=== PATIENT | male | born 1990 ===

== ENCOUNTER 2017-03-12 06:55 | Emergency (ER) | payer MEDICAID, OTHER ==
[2017-03-12 07:06] VITALS: BMI 22.6
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
[2017-03-12 07:56] LABS: BASO # 0.03 K/mm3 (0.0-2.0); BASO % 0.5 % (0.0-3.0); EOS # 0.1 (0.0-0.7); EOS % 1.2 % (1.5-5.0); GRAN # 2.78 (1.4-6.5); GRAN % 41.9 % (50.0-68.0); HEMOGLOBIN 14.7 gm/dL (14.0-18.0); INR 1.05 (0.93-1.08); LYMPH # 2.9 (1.2-3.4); LYMPH % 44.1 % (22.0-35.0); MEAN CELL VOLUME 99.3 fL (80.0-105.0); MEAN CORPUSCULAR HEMOGLOBIN 33.6 pg (25.0-35.0); MEAN CORPUSCULAR HGB CONC 33.8 g/dl (31.0-37.0); MONO # 0.8 (0.1-0.6); MONO % 12.3 % (1.0-6.0); PARTIAL THROMBOPLASTIN TIME 25.8 Seconds (23.7-30.8); PLATELET COUNT 245 10^3/uL (120.0-450.0); PROTHROMBIN TIME 11.3 Seconds (9.9-11.8); RBC 4.38 10^6/uL (3.5-6.1); RED CELL DISTRIBUTION WIDTH 12.6 % (11.5-14.5); WHITE BLOOD COUNT 6.6 10^3/ul (4.5-11.0)
[2017-03-12 08:40] LABS: ALB/GLOB RATIO 1.5 (1.1-1.8); ALBUMIN 4.3 g/dL (3.0-4.8); ALT/SGPT 18 U/L (7-56); AST/SGOT 25 U/L (15-59); BLOOD UREA NITROGEN 11 mg/dL (7-21); CALCIUM 9.1 mg/dL (8.4-10.5); GFR AFRICAN-AMERICAN > 60; GFR NON-AFRICAN AMERICAN > 60
--- NOTE | 2017-03-12 08:56 | CT ---
PROCEDURE: CT HEAD WITHOUT CONTRAST. HISTORY: fall COMPARISON: None available. TECHNIQUE: Axial computed tomography images were obtained through the head/brain without intravenous contrast. Radiation dose: Total exam DLP = 774 mGy-cm. This CT exam was performed using one or more of the following dose reduction techniques: Automated exposure control, adjustment of the mA and/or kV according to patient size, and/or use of iterative reconstruction technique. FINDINGS: HEMORRHAGE: No intracranial hemorrhage. BRAIN: No mass effect or edema. There is mild atrophy for this age group. VENTRICLES: Unremarkable. No hydrocephalus. CALVARIUM: Unremarkable. PARANASAL SINUSES: Unremarkable as visualized. No significant inflammatory changes. MASTOID AIR CELLS: Unremarkable as visualized. No inflammatory changes. OTHER FINDINGS: None. IMPRESSION: No acute findings
[2017-03-12] MEDS ORDERED: Fosphenytoin 1,000 MG in Sodium Chloride 0.9% 50 ML IV STA (09:03)
[2017-03-12] MEDS ORDERED: Ketamine 10 mg/ml Inj (20 ml) IV ONE (09:28)
--- NOTE | 2017-03-12 09:37 | RAD ---
PROCEDURE: Radiographs of the Left Shoulder HISTORY: fell on shoulder during seizure. COMPARISON: No prior. FINDINGS: BONES: Normal. No fracture. JOINTS: There is an anterior inferior dislocation of the left humeral head. SOFT TISSUES: Normal. OTHER FINDINGS: None. IMPRESSION: There is an anterior inferior dislocation of the left humeral head.
[2017-03-12 10:20] VITALS: RESP 18
[2017-03-12] MEDS ORDERED: Propofol 10 mg/ml Inj (20 ML) IVP ONE ×2 (10:36→12:09)
--- NOTE | 2017-03-12 11:21 | RAD ---
PROCEDURE: Radiographs of the Left Shoulder HISTORY: r/o shoulder dislocation COMPARISON: Earlier same day FINDINGS: BONES: Normal. No fracture. JOINTS: There is no change in the appearance of anterior inferior dislocation postreduction. SOFT TISSUES: Normal. OTHER FINDINGS: None. IMPRESSION: There is no change in the appearance of anterior inferior dislocation postreduction.
--- NOTE | 2017-03-12 12:12 | RAD ---
PROCEDURE: Left shoulder single-view HISTORY: r/o shoulder dislocation COMPARISON: Earlier same day TECHNIQUE: FINDINGS: There is no change in the dislocated right shoulder. There is anterior inferior dislocation. There is some flattening of the posterior surface of the humeral head consistent with chronic dislocations IMPRESSION: No change in dislocation
[2017-03-12 13:07] VITALS: O2SAT 100
--- NOTE | 2017-03-12 14:02 | RAD ---
PROCEDURE: Left shoulder HISTORY: post-reduction COMPARISON: Several previous study same day TECHNIQUE: Two views FINDINGS: The shoulder now shows normal alignment postreduction IMPRESSION: Successful reduction
[2017-03-12 15:34] VITALS: BP 127/70; PULSE 74; TEMP 98.5
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
--- NOTE | 2017-03-13 09:49 | CARD ---
APPROVED REPORT EKG Measurement Heart [id number] <Conclusion> Sinus tachycardia Incomplete right bundle branch block Left ventricular hypertrophy by voltage Prolonged QTc
== END 2017-03-12 15:34 | disposition home or self-care (01) ==
LOC: ED 06:55
DX: S43.005A Unspecified dislocation of left shoulder joint, initial encounter (principal); X58.XXXA Exposure to other specified factors, initial encounter; Y93.55 Activity, bike riding
CPT/HCPCS: 23650; 70450; 73020; 73030; 80053; 85025; 85610; 85730; 93005; 96365; 96375; 99285; J1885; J2704; Q2009

== ENCOUNTER 2017-05-25 22:55 | Emergency (ER) | payer MEDICAID, OTHER ==
[2017-05-25 22:56] VITALS: BMI 22.6
[2017-05-25] MEDS ORDERED: Morphine 4 mg/ml ISec IVP STA (23:40)
--- NOTE | 2017-05-25 23:43 | ED PDOC ---
Arrival/HPI - General Chief Complaint: Seizure Time Seen by Provider: 05/25/17 23:19 Historian: Patient - History of Present Illness Narrative History of Present Illness (Text): 05/25/17 23:19 Ochoa Marion is a 26 year old male, whose past medical history includes seizure disorder, who presents to the emergency department complaining of seizure episode prior to arrival. Patient's witnessed seizure and states that patient was sitting on the couch, did not experience any head trauma. Patient states that he normally dislocated shoulder after seizure and is now complaining of left shoulder pain. Patient has no other pain and denies any other complaints at this time. Reports that he does not always take his depakote. He report hx of 5 other shoulder dislocations and has not followed up with ortho Time/Duration: Prior to Arrival Symptom Onset: Sudden Symptom Course: Resolved Activities at Onset: Light Context: Home Past Medical History - Provider Review Nursing Documentation Reviewed: Yes - Infectious Disease Hx of Infectious Diseases: None - Tetanus Immunization Tetanus Immunization: Up to Date - Cardiac Hx Cardiac Disorders: No - Pulmonary Hx Respiratory Disorders: Yes Hx Tuberculosis: Yes (last year) - Neurological Hx Neurological Disorder: Yes Hx Seizures: Yes - HEENT Hx HEENT Disorder: No - Renal Hx Renal Disorder: No - Endocrine/Metabolic Hx Endocrine Disorders: No - Hematological/Oncological Hx Blood Disorders: No - Integumentary Hx Dermatological Disorder: No - Musculoskeletal/Rheumatological Hx Musculoskeletal Disorders: No - Gastrointestinal Hx Gastrointestinal Disorders: No - Genitourinary/Gynecological Hx Genitourinary Disorders: No - Psychiatric Hx Psychophysiologic Disorder: No Hx Substance Use: No - Anesthesia Hx Anesthesia: No Hx Anesthesia Reactions: No Family/Social History - Physician Review Nursing Documentation Reviewed: Yes Family/Social History: No Known Family HX Smoking Status: Never Smoked Hx Alcohol Use: No Hx Substance Use: No Allergies/Home Meds Allergies/Adverse Reactions: Allergies No Known Allergies Allergy (Verified 05/25/17 23:22) Home Medications: Home Meds Medication Instructions Recorded Confirmed Valproic Acid [Depakene] 500 mg PO BID 08/09/16 05/25/17 Review of Systems - Physician Review All systems were reviewed & negative as marked: Yes - Review of Systems Constitutional: absent: Fevers, Night Sweats Eyes: absent: Vision Changes ENT: absent: Hearing Changes Respiratory: absent: SOB, Cough Cardiovascular: absent: Chest Pain Gastrointestinal: absent: Abdominal Pain Genitourinary Male: absent: Dysuria, Frequency Musculoskeletal: absent: Arthralgias, Back Pain Skin: absent: Rash, Pruritis Neurological: Seizure. absent: Headache, Dizziness Hemo/Lymphatic: absent: Adenopathy Psychiatric: absent: Anxiety, Depression Physical Exam Vital Signs Reviewed: Yes Vital Signs Pulse Resp BP Pulse Ox 05/25/17 23:22 106 H 19 161/86 H 99 Blood Pressure: Hypertensive Pulse: Tachycardic Respiratory Rate: Normal Appearance: Positive for: Well-Appearing, Non-Toxic, Comfortable Pain Distress: Moderate (Left shoulder pain) Mental Status: Positive for: Alert and Oriented X 3 - Systems Exam Head: Present: Atraumatic, Normocephalic Pupils: Present: PERRL Extroacular Muscles: Present: EOMI Conjunctiva: Present: Normal Mouth: Present: Moist Mucous Membranes Neck: Present: Normal Range of Motion Respiratory/Chest: Present: Clear to Auscultation, Good Air Exchange. No: Respiratory Distress, Accessory Muscle Use Cardiovascular: Present: Regular Rate and Rhythm, Normal S1, S2. No: Murmurs Abdomen: Present: Normal Bowel Sounds. No: Tenderness, Distention, Peritoneal Signs Upper Extremity: Present: Deformity (Left shoulder interior dislocation), Other (Distal pulses intact). No: Normal ROM (unable to range left shoulder) Lower Extremity: Present: Normal Inspection. No: Edema Neurological: Present: GCS=15, CN II-XII Intact, Speech Normal Skin: Present: Warm, Dry, Normal Color. No: Rashes Medical Decision Making ED Course and Treatment: 05/25/17 23:45 Impression: 26 year old male complaining of left shoulder pain after a seizure that occurred prior to arrival. Non-compliant with medication. Differential Diagnosis included but are not limited to: Seizure Plan: -- Left Shoulder x-ray -- Morphine -- Reassess and disposition Prior Visits: Notes and results from previous visits were reviewed. Patient last seen in the ED on 03/12/17 after having a seizure that morning. Patient was discharged home. Progress Notes: 05/25/17 23:46 Patient notes that he was in normal state of health before seizure. Patient is following up with neurologist next month. 05/26/17 01:42 Reviewed radiology, left shoulder x-ray consistent with interior left shoulder dislocation. 05/26/17 03:57 Procedural sedation with propofol was performed. L shoulder reduced. Normal ROM of L shoulder and able to touch R shoulder with L hand. Neurovascularly intact 05/26/17 05:21 XRay Left Shoulder: Dictated and Authenticated by: Jenny Vizcaino MD FINDINGS: Study performed at 1AM earlier the same day demonstrated anterior inferior dislocation of the humeral head. The patient has subsequently undergone reduction. The humeral head is now positioned in normal alignment with the glenoid. Again seen is chronic flattening of the posterior surface of the humeral head consistent with chronic dislocations. IMPRESSION: Status post successful reduction. 05/26/17 05:23 Patient is now AAox3. L shoulder placed in sling. Will dc to follow-up with ortho. Instructed on the importance of compliance with seizure medication. Seizure medication refilled - RAD Interpretation Radiology Orders: 05/25/17 23:40 SHOULDER LEFT [RAD] Stat 05/26/17 03:47 SHOULDER LEFT ONE VIEW (OR) [RAD] Stat - Medication Orders Current Medication Orders: Discontinued Medications Morphine Sulfate (Morphine) 4 mg IVP STAT STA Stop: 05/25/17 23:41 Last Admin: 05/25/17 23:59 Dose: 4 mg MAR Pain Assessment Document 05/25/17 23:59 JOL (Rec: 05/25/17 23:59 JOL [id number]) Pain Reassessment Is this a pain reassessment? No Sleep Is patient sleeping during reassessment? No Presence of Pain Presence of Pain Yes Pain Scale Used Pain Scale Used Numeric Location Left, Right or Bilateral Left Pain Location Body Site Shoulder Description Intensity of Pain at present 9 Pain Behavior Withdrawal from Touch Grasping Site Rubbing Site Restlessness Facial Grimacing IVP Administration Document 05/25/17 23:59 JOL (Rec: 05/25/17 23:59 JOL [id number]) Charges for Administration # of IVP Administrations 1 Propofol (Diprivan) 120 mg IVP ONCE ONE Stop: 05/26/17 03:05 Last Admin: 05/26/17 02:00 Dose: 120 mg IVP Administration Document 05/26/17 02:00 JOL (Rec: 05/26/17 05:18 JOL [id number]) Charges for Administration # of IVP Administrations 1 Propofol (Diprivan) 120 mg IVP ONCE ONE Stop: 05/26/17 03:06 Last Admin: 05/26/17 03:07 Dose: 120 mg IVP Administration Document 05/26/17 03:07 JOL (Rec: 05/26/17 05:20 JOL [id number]) Charges for Administration # of IVP Administrations 1 Propofol (Diprivan) 100 mg IVP STAT STA Stop: 05/26/17 03:49 Last Admin: 05/26/17 04:07 Dose: 100 mg IVP Administration Document 05/26/17 04:07 JOL (Rec: 05/26/17 05:20 JOL [id number]) Charges for Administration # of IVP Administrations 1 ED Procedural Sedation - Pre Anesthesia Assessment Chief Complaint: Seizure Past Medical History: Medications Reviewed, Allergies Reviewed, Record Review Previous Surgies: Reviewed Family History/Social History: Reviewed - Physical Exam/Review of Systems Vital Signs Reviewed: Yes Cardiovascular: Regular Rate and Rhythm, Normal S1, S2. denies: Murmurs Respiratory/Chest: Clear to Auscultation, Good Air Exchange. denies: Respiratory Distress Neurological: GCS=15, CN II-XII Intact Abdomen: denies: Tenderness, Distention Mental Status: Alert and Oriented X 3 - Pre-Procedure Airway Assessment History of difficult intubation or surgical airway (i.e trach):: No Inability to extend neck:: No Mouth opening less than two finger breadth:: No Diagnosis of sleep apnea:: No Less than three finger breadth to hyoid bone:: No ASA Criteria: 1 - Healthy, normal. 2 - Mild systemic disease (No functional limitations, mildline obesity, DM withot complications, Hypertention). 3 - Severe systemic disease (Some functional limitation, stable angina, morbid obesity, controlled COPD/Asthma/CHF). 4 - Sever systemic disease constant threat to life (Unstable angina, active symptoms of COPD/Asthma, CHF/ Hypertension. 5 - Moribund Nursing ED Procedural Sedation: ER Moderate Sedation Start: 05/26/17 02: 54 Freq: Status: Active Created 05/26/17 02:54 JOL (Rec: 05/26/17 02:54 JOL [id number]) - Intra-Procedure (Medications) Medications Given: Discontinued Medications Morphine Sulfate (Morphine) 4 mg IVP STAT STA Stop: 05/25/17 23:41 Last Admin: 05/25/17 23:59 Dose: 4 mg MAR Pain Assessment Document 05/25/17 23:59 JOL (Rec: 05/25/17 23:59 JOL [id number]) Pain Reassessment Is this a pain reassessment? No Sleep Is patient sleeping during reassessment? No Presence of Pain Presence of Pain Yes Pain Scale Used Pain Scale Used Numeric Location Left, Right or Bilateral Left Pain Location Body Site Shoulder Description Intensity of Pain at present 9 Pain Behavior Withdrawal from Touch Grasping Site Rubbing Site Restlessness Facial Grimacing IVP Administration Document 05/25/17 23:59 JOL (Rec: 05/25/17 23:59 JOL [id number]) Charges for Administration # of IVP Administrations 1 Propofol (Diprivan) 120 mg IVP ONCE ONE Stop: 05/26/17 03:05 Last Admin: 05/26/17 02:00 Dose: 120 mg IVP Administration Document 05/26/17 02:00 JOL (Rec: 05/26/17 05:18 JOL [id number]) Charges for Administration # of IVP Administrations 1 Propofol (Diprivan) 120 mg IVP ONCE ONE Stop: 05/26/17 03:06 Last Admin: 05/26/17 03:07 Dose: 120 mg IVP Administration Document 05/26/17 03:07 JOL (Rec: 05/26/17 05:20 JOL [id number]) Charges for Administration # of IVP Administrations 1 Propofol (Diprivan) 100 mg IVP STAT STA Stop: 05/26/17 03:49 Last Admin: 05/26/17 04:07 Dose: 100 mg IVP Administration Document 05/26/17 04:07 JOL (Rec: 05/26/17 05:20 JOL [id number]) Charges for Administration # of IVP Administrations 1 - Scribe Statement The provider has reviewed the documentation as recorded by the Siddharth Cordova Provider Scribe Attestation: All medical record entries made by the Scribe were at my direction and personally dictated by me. I have reviewed the chart and agree that the record accurately reflects my personal performance of the history, physical exam, medical decision making, and the department course for this patient. I have also personally directed, reviewed, and agree with the discharge instructions and disposition. Disposition/Present on Arrival - Present on Arrival Any Indicators Present on Arrival: No History of DVT/PE: No History of Uncontrolled Diabetes: No Urinary Catheter: No History of Decub. Ulcer: No History Surgical Site Infection Following: None - Disposition Have Diagnosis and Disposition been Completed?: Yes Diagnosis: Seizure disorder, Shoulder dislocation Disposition: HOME/ ROUTINE Disposition Time: 05:23 Patient Plan: Discharge Patient Problems: Current Active Problems Problem Status Onset Seizure disorder Acute Shoulder dislocation Acute Condition: GOOD Discharge Instructions (ExitCare): Shoulder Dislocation (ED) Additional Instructions: Follow-up with orthopedics. Return to ED if condition worsens. Take depakote as prescribed. Follow-up with PMD within 2 days Prescriptions: Valproic Acid [Depakene] 250 mg PO BID #60 capsule Referrals: Rachel Ellis MD [Primary Care Provider] - Follow up with primary Diamante Bernard MD [Staff Provider] - Follow up with primary Forms: [employer] (Pashto)
[2017-05-26] MEDS ORDERED: Propofol 10 mg/ml Inj (20 ML) ONE (01:39)
[2017-05-26] MEDS ORDERED: Propofol 10 mg/ml Inj (20 ML) IVP ONE ×2 (03:04→03:05)
[2017-05-26] MEDS ORDERED: Propofol 10 mg/ml Inj (20 ML) IVP STA (03:48)
--- NOTE | 2017-05-26 05:20 | RAD ---
EXAM: XR Left Shoulder, 1 View EXAM DATE/TIME: 05/26/2017 3:47 AM CLINICAL HISTORY: 26 years old, male; Pain; Shoulder; Left; Patient HX: Post reduction; Additional info: S/P reduction TECHNIQUE: One view of the left shoulder. COMPARISON: DX - SHOULDER LEFT 2017-05-26 01:09 FINDINGS: Study performed at 1AM earlier the same day demonstrated anterior inferior dislocation of the humeral head. The patient has subsequently undergone reduction. The humeral head is now positioned in normal alignment with the glenoid. Again seen is chronic flattening of the posterior surface of the humeral head consistent with chronic dislocations. IMPRESSION: Status post successful reduction.
[2017-05-26 06:13] VITALS: BP 133/80; PULSE 83; RESP 18; O2SAT 100
--- NOTE | 2017-05-26 08:46 | RAD ---
PROCEDURE: Radiographs of the Left Shoulder HISTORY: L shoulder pain COMPARISON: No prior. FINDINGS: BONES: No definite fracture. JOINTS: Anterior dislocation at the glenohumeral articulation. Acromioclavicular articulation intact. SOFT TISSUES: Normal. OTHER FINDINGS: None. IMPRESSION: Anterior glenohumeral dislocation. No definite fracture identified.
--- NOTE | 2017-05-27 14:40 | CARD ---
APPROVED REPORT EKG Measurement Heart [id number] [place] [id number] <Conclusion> Normal sinus rhythm Normal ECG
== END 2017-05-26 05:50 | disposition home or self-care (01) ==
LOC: ED 22:55
DX: G40.909 Epilepsy, unspecified, not intractable, without status epilepticus (principal); S43.015A Anterior dislocation of left humerus, initial encounter; X58.XXXA Exposure to other specified factors, initial encounter; Y93.89 Activity, other specified; Y92.89 Other specified places as the place of occurrence of the external cause
CPT/HCPCS: 23655; 73020; 73030; 93005; 96374; 99285; J2270; J2704

== ENCOUNTER 2017-12-01 10:11 | Emergency (ER) | payer MEDICAID, OTHER ==
[2017-12-01 10:12] VITALS: BMI 22.6
--- NOTE | 2017-12-01 10:41 | ED PDOC ---
Arrival/HPI - General Chief Complaint: Seizure Time Seen by Provider: 12/01/17 10:26 Historian: Patient - History of Present Illness Narrative History of Present Illness (Text): you were treated in the ED today for hx of seizures, on depkakote 500mg daily and having dislocation of the shoulder and now had a seizure with left shoulder pain but otherwise without any head injury/neck pain/fever/nausea/vomiting/ headache/dizziness/difficulty breathing/chest pain/abdomen pain/numbness/ tingling/loss of limb function/pain with urination. 12/01/17 10:44 12/01/17 10:44 Time/Duration: 1-3 hours Symptom Onset: Sudden Symptom Course: Improving Quality: Aching Severity Level: 2 Activities at Onset: Rest Context: Sitting Past Medical History - Provider Review Nursing Documentation Reviewed: Yes - Travel History Have you recently traveled outside [place] w/in the past 3 mons?: No - Infectious Disease Hx of Infectious Diseases: None - Tetanus Immunization Tetanus Immunization: Up to Date - Cardiac Hx Cardiac Disorders: No - Pulmonary Hx Respiratory Disorders: Yes Hx Tuberculosis: Yes (last year) - Neurological Hx Neurological Disorder: Yes Hx Seizures: Yes - HEENT Hx HEENT Disorder: No - Renal Hx Renal Disorder: No - Endocrine/Metabolic Hx Endocrine Disorders: No - Hematological/Oncological Hx Blood Disorders: No - Integumentary Hx Dermatological Disorder: No - Musculoskeletal/Rheumatological Hx Musculoskeletal Disorders: No - Gastrointestinal Hx Gastrointestinal Disorders: No - Genitourinary/Gynecological Hx Genitourinary Disorders: No - Psychiatric Hx Psychophysiologic Disorder: No Hx Substance Use: No - Anesthesia Hx Anesthesia: No Hx Anesthesia Reactions: No Family/Social History - Physician Review Nursing Documentation Reviewed: Yes Family/Social History: Unknown Family HX Smoking Status: Never Smoked Hx Alcohol Use: No Hx Substance Use: No Allergies/Home Meds Allergies/Adverse Reactions: Allergies No Known Allergies Allergy (Verified 05/25/17 23:22) Home Medications: Home Meds Medication Instructions Recorded Confirmed Valproic Acid Cap [Depakene Cap] 500 mg PO BID 08/09/16 12/01/17 Review of Systems - Review of Systems Constitutional: Normal Eyes: Normal ENT: Normal Respiratory: Normal Cardiovascular: Normal Gastrointestinal: Normal Genitourinary Male: Normal Musculoskeletal: Arthralgias Skin: Normal Neurological: Seizure Endocrine: Normal Hemo/Lymphatic: Normal Psychiatric: Normal Physical Exam Vital Signs Reviewed: Yes Vital Signs Temp Pulse Resp BP Pulse Ox 12/01/17 14:53 86 18 136/69 100 12/01/17 14:31 71 18 136/69 100 12/01/17 14:04 98.6 F 71 20 140/81 100 12/01/17 13:46 84 17 142/74 97 12/01/17 13:34 75 16 142/74 96 12/01/17 12:52 98 F 92 H 15 122/75 12/01/17 12:30 83 18 139/84 98 12/01/17 10:12 98 F 106 H 18 145/87 97 Temperature: Afebrile Blood Pressure: Normal Pulse: Tachycardic Respiratory Rate: Normal Appearance: Positive for: Well-Appearing, Non-Toxic, Comfortable Pain Distress: None Mental Status: Positive for: Alert and Oriented X 3 - Systems Exam Head: Present: Atraumatic Pupils: Present: PERRL Extroacular Muscles: Present: EOMI Conjunctiva: Present: Normal Ears: Present: Normal Mouth: Present: Moist Mucous Membranes Pharnyx: Present: Normal Nose (External): Present: Atraumatic Nose (Internal): Present: Normal Inspection Neck: Present: Normal Range of Motion, Other (no c-t-l spinal or paraspinal tenderness) Respiratory/Chest: Present: Clear to Auscultation, Good Air Exchange Cardiovascular: Present: Regular Rate and Rhythm Abdomen: No: Tenderness, Distention, Normal Bowel Sounds, Peritoneal Signs, Rebound, Guarding, McBurney's Point Tender, Rovsing's Sign Present, Hernias, Feeding Tubes, Ostomy Tubes, Mass/Organomegaly, Scars, Other Upper Extremity: Present: Other (mild left upper shoulder discomfort wo any other bony tenderness and othewise warm/sensation/pink/radial pulse positive) Lower Extremity: Present: Normal Inspection Neurological: Present: GCS=15, CN II-XII Intact, Speech Normal, Motor Func Grossly Intact Skin: Present: Warm, Normal Color Psychiatric: Present: Alert, Oriented x 3, Normal Insight, Normal Concentration Medical Decision Making ED Course and Treatment: you were treated in the ED today for hx of seizures, on depkakote 500mg daily and having dislocation of the shoulder and now had a seizure with left shoulder pain but otherwise without any head injury/neck pain/fever/nausea/vomiting/ headache/dizziness/difficulty breathing/chest pain/abdomen pain/numbness/ tingling/loss of limb function/pain with urination. You were otherwise breathing easily, talking easily, good strength/sensation, clear lungs, no abdomen tenderness, left shoulder mild discomfort but otherwise no bony tenderness and with good warm/pink/sensation/radial pulse in extremity, no fever temp 98, stable heart rate 106 and repeat 86, stable breathing rate 18, excellent oxygen level 97% room air, elevated blood pressure 145/87 which we recommend repeat in 2-3 days primary care office to determine further treatment , you have blood tests no infection count 7, stable blood level hemoglobin 15/ platelets 256, stable chemistry, heart blood test negative less than 0.01, depakote level low, shoulder xray radiology with dislocation and then sedation/ shoulder replacement procedure and repeat shoulder xray with replacement of your shoulder dislocation, morphine, saline, shoulder sling which you should maintain till first clinic visit, observation done in the ED with improvement, counselled to be non-weight bearing left shoulder and maitain sling and thus discharged home with safe ride/mom. 1. Recommend tylenol or motrin as directed for pain. 2. Recommend continue your depakote. 3. Recommend follow-up primary care 1-2 days to review symptoms, neurology clinic to review your symptoms/ medications, referral to orthopedics surgery to review your recurrent dislocations. 4. If any worsening pain, fever, chills, nausea, vomiting, difficulty breathing, numbness, loss of limb function, pain with urination or any medical condition then return to the ED. corrected anion gap 19 12/01/17 11:55 Left Shoulder x-ray: Creator: DR. Warner, Sudeep ALANIZ FINDINGS: BONES: Normal. No fracture. JOINTS: Normal. Glenohumeral and acromioclavicular joints preserved. No osteoarthritis. SOFT TISSUES: Normal. OTHER FINDINGS: None. IMPRESSION: Normal radiographs of the left shoulder. 12/01/17 12:09 12/01/17 13:03 pt stated persistent discomfort, consented, procedural sedation versed/fentanyl , with mild improvement, sling and repeat shoulder xray. 12/01/17 15:50 2nd left shoulder with subluxation. 12/01/17 15:52 pt stated persistent discomfort, consented, procedural sedation propafol, traction/counter traction, with resolution of discomfort/improvement, neurovasc intact/radial pulse, sling and repeat shoulder xray. repeat shoulder xray improvement. 12/01/17 16:07 12/01/17 16:14 Reassessment Condition: Re-examined, Improved - Lab Interpretations Lab Results: 12/01/17 10:30 12/01/17 10:30 Lab Results 12/01/17 10:30: Troponin I < 0.01 12/01/17 10:30: PT 11.2, INR 0.97, APTT 26.9 12/01/17 10:30: Valproic Acid < 10 L 12/01/17 10:30: Sodium 142, Potassium 4.0, Chloride 103, Carbon Dioxide 16 L, Anion Gap 28 H, BUN 9, Creatinine 0.9, Est GFR ( Amer) > 60, Est GFR (Non -Af Amer) > 60, Random Glucose 104, Calcium 9.5, Total Bilirubin 0.6, AST 38, ALT 22, Alkaline Phosphatase 62, Total Protein 8.4 H, Albumin 5.3 H, Globulin 3.1, Albumin/Globulin Ratio 1.7 12/01/17 10:30: WBC 7.6, RBC 4.58, Hgb 15.1, Hct 43.4, MCV 94.8, MCH 33.0, MCHC 34.8, RDW 11.6, Plt Count 256, MPV 10.2, Gran % 62.2, Lymph % (Auto) 27.7, [place] % (Auto) 9.3 H, Eos % (Auto) 0.5 L, Baso % (Auto) 0.3, Gran # 4.70, Lymph # ( Auto) 2.1, [place] # (Auto) 0.7 H, Eos # (Auto) 0.0, Baso # (Auto) 0.02 I have reviewed the lab results: Yes - RAD Interpretation Radiology Orders: 12/01/17 10:42 SHOULDER LEFT [RAD] Stat 12/01/17 13:02 SHOULDER LEFT [RAD] Stat 12/01/17 14:19 SHOULDER LEFT ONE VIEW (OR) [RAD] Stat Operations Agent: Radiologist - EKG Interpretation Interpreted by ED Physician: Yes (sinus tachycardia) - Medication Orders Current Medication Orders: Discontinued Medications Fentanyl (Fentanyl) 25 mcg IVP ONCE ONE Stop: 12/01/17 12:41 Last Admin: 12/01/17 12:55 Dose: 25 mcg MAR Pain Assessment Document 12/01/17 12:55 SRE (Rec: 12/01/17 13:07 SRE [id number]) Pain Reassessment Is this a pain reassessment? Yes Sleep Is patient sleeping during reassessment? No Presence of Pain Presence of Pain Yes Pain Scale Used Pain Scale Used Numeric Location Left, Right or Bilateral Left IVP Administration Document 12/01/17 12:55 SRE (Rec: 12/01/17 13:07 SRE [id number]) Charges for Administration # of IVP Administrations 1 Re-Assess: [facility] Pain Assessment Document 12/01/17 13:55 SRE (Rec: 12/01/17 15:00 SRE [id number]) Pain Reassessment Is this a pain reassessment? Yes Sleep Is patient sleeping during reassessment? No Presence of Pain Presence of Pain Yes Fentanyl (Fentanyl) 25 mcg IVP ONCE ONE Stop: 12/01/17 13:02 Last Admin: 12/01/17 13:00 Dose: 25 mcg MAR Pain Assessment Document 12/01/17 13:00 SRE (Rec: 12/01/17 13:08 SRE [id number]) Pain Reassessment Is this a pain reassessment? Yes Sleep Is patient sleeping during reassessment? No IVP Administration Document 12/01/17 13:00 SRE (Rec: 12/01/17 13:08 SRE [id number]) Charges for Administration # of IVP Administrations 1 Re-Assess: [facility] Pain Assessment Document 12/01/17 14:00 SRE (Rec: 12/01/17 15:00 SRE [id number]) Pain Reassessment Is this a pain reassessment? Yes Sleep Is patient sleeping during reassessment? No Presence of Pain Presence of Pain Yes Pain Scale Used Pain Scale Used Numeric Location Left, Right or Bilateral Left Fentanyl (Fentanyl) 25 mcg IVP ONCE ONE Stop: 12/01/17 13:39 Last Admin: 12/01/17 14:57 Dose: Sodium Chloride (Sodium Chloride 0.9%) 1,000 mls @ 999 mls/hr IV .Q1H1M STA Stop: 12/01/17 12:53 Last Admin: 12/01/17 12:25 Dose: 999 mls/hr eMAR Start Stop Document 12/01/17 12:25 SRE (Rec: 12/01/17 12:26 SRE [id number]) Intravenous Solution Start Date 12/01/17 Start Time 12:26 End Date 12/01/17 End time 13:25 Total Infusion Time 59 Midazolam HCl (Versed Inj) 2 mg IVP STAT STA Stop: 12/01/17 12:40 Last Admin: 12/01/17 12:52 Dose: 2 mg IVP Administration Document 12/01/17 12:52 SRE (Rec: 12/01/17 13:07 SRE [id number]) Charges for Administration # of IVP Administrations 1 Midazolam HCl (Versed Inj) 2 mg IVP STAT STA Stop: 12/01/17 13:39 Last Admin: 12/01/17 14:59 Dose: Morphine Sulfate (Morphine) 2 mg IVP STAT STA Stop: 12/01/17 10:44 Last Admin: 12/01/17 10:53 Dose: 2 mg IVP Administration Document 12/01/17 10:53 SRE (Rec: 12/01/17 10:55 SRE [id number]) Charges for Administration # of IVP Administrations 1 Morphine Sulfate (Morphine) 4 mg IVP STAT STA Stop: 12/01/17 12:09 Last Admin: 12/01/17 12:25 Dose: 4 mg MAR Pain Assessment Document 12/01/17 12:25 SRE (Rec: 12/01/17 12:25 SRE [id number]) Pain Reassessment Is this a pain reassessment? Yes Sleep Is patient sleeping during reassessment? Yes Pain Scale Used Pain Scale Used Numeric Location Left, Right or Bilateral Left Pain Location Body Site Shoulder Description Description Intermittent IVP Administration Document 12/01/17 12:25 SRE (Rec: 12/01/17 12:25 SRE [id number]) Charges for Administration # of IVP Administrations 1 Re-Assess: MAR Pain Assessment Document 12/01/17 13:25 SRE (Rec: 12/01/17 15:00 SRE [id number]) Pain Reassessment Is this a pain reassessment? Yes Sleep Is patient sleeping during reassessment? No Presence of Pain Presence of Pain Yes Ondansetron HCl (Zofran Inj) 4 mg IVP STAT STA Stop: 12/01/17 12:09 Last Admin: 12/01/17 12:24 Dose: 4 mg IVP Administration Document 12/01/17 12:24 SRE (Rec: 12/01/17 12:24 SRE [id number]) Charges for Administration # of IVP Administrations 1 Propofol (Diprivan) 20 mg IVP ONCE ONE Stop: 12/01/17 13:51 Last Admin: 12/01/17 14:27 Dose: 140 mg IVP Administration Document 12/01/17 14:27 SRE (Rec: 12/01/17 14:28 SRE [id number]) Charges for Administration # of IVP Administrations 1 Propofol (Diprivan) 140 mg IVP ONCE ONE Stop: 12/01/17 14:40 Last Admin: 12/01/17 14:59 Dose: Disposition/Present on Arrival - Present on Arrival Any Indicators Present on Arrival: No History of DVT/PE: No History of Uncontrolled Diabetes: No Urinary Catheter: No History of Decub. Ulcer: No History Surgical Site Infection Following: None - Disposition Have Diagnosis and Disposition been Completed?: Yes Diagnosis: Seizure disorder, Shoulder dislocation Disposition: HOME/ ROUTINE Disposition Time: 16:09 Patient Plan: Discharge Condition: IMPROVED Discharge Instructions (ExitCare): Seizures, Adult (DC), Shoulder Dislocation ( DC) Additional Instructions: you were treated in the ED today for hx of seizures, on depkakote 500mg daily and having dislocation of the shoulder and now had a seizure with left shoulder pain but otherwise without any head injury/neck pain/fever/nausea/vomiting/ headache/dizziness/difficulty breathing/chest pain/abdomen pain/numbness/ tingling/loss of limb function/pain with urination. You were otherwise breathing easily, talking easily, good strength/sensation, clear lungs, no abdomen tenderness, left shoulder mild discomfort but otherwise no bony tenderness and with good warm/pink/sensation/radial pulse in extremity, no fever temp 98, stable heart rate 106 and repeat 86, stable breathing rate 18, excellent oxygen level 97% room air, elevated blood pressure 145/87 which we recommend repeat in 2-3 days primary care office to determine further treatment , you have blood tests no infection count 7, stable blood level hemoglobin 15/ platelets 256, stable chemistry, heart blood test negative less than 0.01, depakote level low, shoulder xray radiology with dislocation and then sedation/ shoulder replacement procedure and repeat shoulder xray with replacement of your shoulder dislocation, morphine, saline, shoulder sling which you should maintain till first clinic visit, observation done in the ED with improvement, counselled to be non-weight bearing left shoulder and maitain sling and thus discharged home with safe ride/mom. 1. Recommend tylenol or motrin as directed for pain. 2. Recommend continue your depakote. 3. Recommend follow-up primary care 1-2 days to review symptoms, neurology clinic to review your symptoms/ medications, referral to orthopedics surgery to review your recurrent dislocations. 4. If any worsening pain, fever, chills, nausea, vomiting, difficulty breathing, numbness, loss of limb function, pain with urination or any medical condition then return to the ED. Prescriptions: Ibuprofen [Motrin Tab] 800 mg PO TID PRN 10 Days #30 tab PRN Reason: Pain, Mild (1-3) Forms: [facility] ([place]), WORK NOTE
[2017-12-01] MEDS ORDERED: Morphine 2 mg/2 mL syringe IVP STA (10:43)
[2017-12-01 10:44] LABS: BASO # 0.02 K/mm3 (0.0-2.0); BASO % 0.3 % (0.0-3.0); EOS % 0.5 % (1.5-5.0); GRAN # 4.7 (1.4-6.5); GRAN % 62.2 % (50.0-68.0); HEMOGLOBIN 15.1 g/dL (14.0-18.0); LYMPH # 2.1 (1.2-3.4); LYMPH % 27.7 % (22.0-35.0); MEAN CELL VOLUME 94.8 fl (80.0-105.0); MEAN CORPUSCULAR HGB CONC 34.8 g/dl (31.0-37.0); MEAN PLATELET VOLUME 10.2 fl (7.0-11.0); MONO # 0.7 (0.1-0.6); MONO % 9.3 % (1.0-6.0); RBC 4.58 10^6/uL (3.5-6.1); RED CELL DISTRIBUTION WIDTH 11.6 % (11.5-14.5); WHITE BLOOD COUNT 7.6 10^3/ul (4.5-11.0)
[2017-12-01 10:59] LABS: INR 0.97 (0.93-1.08); PARTIAL THROMBOPLASTIN TIME 26.9 Seconds (25.1-36.5); PROTHROMBIN TIME 11.2 SECONDS (9.4-12.5)
[2017-12-01 11:00] LABS: ALB/GLOB RATIO 1.7 (1.1-1.8); ALBUMIN 5.3 g/dL (3.0-4.8); ALT/SGPT 22 U/L (7-56); AST/SGOT 38 U/L (17-59); BLOOD UREA NITROGEN 9 mg/dL (7-21); CALCIUM 9.5 mg/dL (8.4-10.5); GFR AFRICAN-AMERICAN > 60; GFR NON-AFRICAN AMERICAN > 60
--- NOTE | 2017-12-01 11:44 | RAD ---
PROCEDURE: Radiographs of the Left Shoulder HISTORY: 27yoM, with shoulder pain COMPARISON: No prior. FINDINGS: BONES: Normal. No fracture. JOINTS: Normal. Glenohumeral and acromioclavicular joints preserved. No osteoarthritis. SOFT TISSUES: Normal. OTHER FINDINGS: None. IMPRESSION: Normal radiographs of the left shoulder.
[2017-12-01] MEDS ORDERED: Sodium Chloride 0.9% 1,000 ML IV STA (11:53)
[2017-12-01] MEDS ORDERED: Morphine 4 mg/ml ISec IVP STA (12:08)
[2017-12-01] MEDS ORDERED: Midazolam 2 MG/2 ML VIAL IVP STA (12:39)
--- NOTE | 2017-12-01 13:33 | RAD ---
PROCEDURE: Radiographs of the Left Shoulder HISTORY: 27M, persistent discomfort, manipulation, sling. COMPARISON: No prior. FINDINGS: BONES: Normal. No fracture. JOINTS: There is persistent subluxation or dislocation of the humeral head anterior and inferior to the glenoid fossa. SOFT TISSUES: Normal. OTHER FINDINGS: None. IMPRESSION: There is persistent subluxation or dislocation of the humeral head anterior and inferior to the glenoid fossa.
[2017-12-01] MEDS ORDERED: Propofol 10 mg/ml Inj (20 ML) IVP ONE (13:50)
[2017-12-01] MEDS: Midazolam 2 MG/2 ML VIAL IVP STA ×2 (14:57→14:59)
[2017-12-01] MEDS: Propofol 10 mg/ml Inj (20 ML) IVP ONE ×2 (14:57→14:59)
--- NOTE | 2017-12-01 15:04 | RAD ---
PROCEDURE: Left shoulder postreduction HISTORY: post reduction COMPARISON: TECHNIQUE: Single-view FINDINGS: There is successful reduction of the anterior dislocation. There is flattening of the lateral aspect of the humeral head consistent with chronic dislocations. There is no fracture IMPRESSION: Successful reduction.
[2017-12-01 16:08] VITALS: BP 139/66; PULSE 85; TEMP 97.5
[2017-12-01 16:26] VITALS: RESP 18; O2SAT 98
--- NOTE | 2017-12-01 18:40 | CARD ---
APPROVED REPORT EKG Measurement Heart [id number] <Conclusion> Sinus tachycardia Otherwise normal ECG
== END 2017-12-01 16:26 | disposition home or self-care (01) ==
LOC: ED 10:11
DX: G40.909 Epilepsy, unspecified, not intractable, without status epilepticus (principal); S43.005A Unspecified dislocation of left shoulder joint, initial encounter; X58.XXXA Exposure to other specified factors, initial encounter
CPT/HCPCS: 23650; 73020; 73030; 80053; 80164; 84484; 85025; 85610; 85730; 93005; 96361; 96374; 96375; 96376; 99285; J2250; J2270; J2405; J2704; J3010; J7040

== ENCOUNTER 2018-03-29 05:47 | Emergency (ER) | payer MEDICAID ==
[2018-03-29 05:47] VITALS: BMI 22.6
--- NOTE | 2018-03-29 06:14 | ED PDOC ---
Arrival/HPI - General Chief Complaint: Seizure Time Seen by Provider: 03/29/18 05:55 Historian: Patient - History of Present Illness Narrative History of Present Illness (Text): 03/29/18 06:10 Ochoa Marion is a 26 year old male, whose past medical history includes seizure disorder, who presents brought in by EMS to the emergency department status post seizure today. Patient states he had a witnessed seizure while at work tonight and fell to the ground. Patient is unable to recall the event but is now complaining of left shoulder pain, which is worsened with movement. Patient states he regularly takes Depakote. Patient denies any fever, chills, chest pain, nausea, vomiting, back pain, neck pain, headache, dizziness , or any other complaints. Time/Duration: Prior to Arrival Symptom Onset: Sudden Activities at Onset: Light Context: Work Past Medical History - Provider Review Nursing Documentation Reviewed: Yes - Infectious Disease Hx of Infectious Diseases: None - Tetanus Immunization Tetanus Immunization: Up to Date - Cardiac Hx Cardiac Disorders: No - Pulmonary Hx Respiratory Disorders: Yes Hx Tuberculosis: Yes (last year) - Neurological Hx Neurological Disorder: Yes Hx Seizures: Yes - HEENT Hx HEENT Disorder: No - Renal Hx Renal Disorder: No - Endocrine/Metabolic Hx Endocrine Disorders: No - Hematological/Oncological Hx Blood Disorders: No - Integumentary Hx Dermatological Disorder: No - Musculoskeletal/Rheumatological Hx Musculoskeletal Disorders: No - Gastrointestinal Hx Gastrointestinal Disorders: No - Genitourinary/Gynecological Hx Genitourinary Disorders: No - Psychiatric Hx Psychophysiologic Disorder: No Hx Substance Use: No - Anesthesia Hx Anesthesia: No Hx Anesthesia Reactions: No Family/Social History - Physician Review Nursing Documentation Reviewed: Yes Family/Social History: Unknown Family HX Smoking Status: Never Smoked Hx Alcohol Use: No Hx Substance Use: No Allergies/Home Meds Allergies/Adverse Reactions: Allergies No Known Allergies Allergy (Verified 05/25/17 23:22) Home Medications: Home Meds Medication Instructions Recorded Confirmed Valproic Acid Cap [Depakene Cap] 500 mg PO BID 08/09/16 03/29/18 Review of Systems - Physician Review All systems were reviewed & negative as marked: Yes - Review of Systems Constitutional: Normal. absent: Fevers Eyes: Normal ENT: Normal Respiratory: Normal. absent: SOB, Cough Cardiovascular: Normal. absent: Chest Pain Gastrointestinal: Normal. absent: Abdominal Pain, Diarrhea, Nausea, Vomiting Genitourinary Male: Normal. absent: Dysuria, Frequency, Hematuria, Urinary Output Changes Musculoskeletal: Arthralgias (+left shoulder pain). absent: Back Pain, Neck Pain Skin: Normal. absent: Rash Neurological: Seizure. absent: Headache, Dizziness Endocrine: Normal Hemo/Lymphatic: Normal Psychiatric: Normal Physical Exam Vital Signs Reviewed: Yes Vital Signs Temp Pulse Resp BP Pulse Ox 03/29/18 05:57 97.9 F 103 H 17 148/79 100 Temperature: Afebrile Blood Pressure: Normal Pulse: Regular Respiratory Rate: Normal Appearance: Positive for: Well-Appearing, Non-Toxic, Comfortable Pain Distress: None Mental Status: Positive for: Alert and Oriented X 3 - Systems Exam Head: Present: Atraumatic, Normocephalic Pupils: Present: PERRL Extroacular Muscles: Present: EOMI Conjunctiva: Present: Normal Mouth: Present: Moist Mucous Membranes Neck: Present: Normal Range of Motion. No: Meningeal Signs, MIDLINE TENDERNESS , Paraspinal Tenderness Respiratory/Chest: Present: Clear to Auscultation, Good Air Exchange. No: Respiratory Distress, Accessory Muscle Use Cardiovascular: Present: Regular Rate and Rhythm, Normal S1, S2. No: Murmurs Abdomen: No: Tenderness, Distention, Peritoneal Signs Back: Present: Normal Inspection. No: CVA Tenderness, Midline Tenderness, Paraspinal Tenderness Upper Extremity: Present: Normal ROM, NORMAL PULSES, Tenderness (Pain at any attempt at movement of left shoulder), Neurovascularly Intact, Capillary Refill < 2s. No: Cyanosis, Edema, Swelling, Erythema, Temperature Abnormalties Lower Extremity: Present: Normal Inspection. No: Edema Neurological: Present: GCS=15, CN II-XII Intact, Speech Normal, Motor Func Grossly Intact, Normal Sensory Function, Normal Cerebellar Funct Skin: Present: Warm, Dry, Normal Color. No: Rashes Psychiatric: Present: Alert, Oriented x 3, Normal Insight, Normal Concentration Medical Decision Making ED Course and Treatment: 03/29/18 06:10 Impression: 27 year old male presents s/p seizure, complaining of left shoulder pain. Plan: -- CT Head w/o contrast -- EKG -- XR Left Shoulder -- Labs, cardiac enzymes, valproic acid -- Reassess and disposition Prior Visits: Notes and results from previous visits were reviewed. On 12/01/2017, pt was seen in the Emergency department s/p seizure with left shoulder dislocation. Pt had dislocation reduced in Emergency room and was d/c home. Progress Notes: Reviewed EKG, NSR at 98 bpm. Incomplete RBBB. Non-specific ST/T wave changes. 03/29/18 07:06 Case endorsed to ./pending labs/CT head/period of observation/final disposition - Lab Interpretations Lab Results: 03/29/18 06:10 03/29/18 06:10 Lab Results 03/29/18 06:10: WBC 7.7, RBC 4.49, Hgb 14.8, Hct 43.9, MCV 97.8 D, MCH 33.0, MCHC 33.7, RDW 12.0, Plt Count 267, MPV 10.0 03/29/18 06:10: Sodium 142, Potassium 4.3, Chloride 103, Carbon Dioxide 16 L, Anion Gap 27 H, BUN 12, Creatinine 0.8, Est GFR ( Amer) > 60, Est GFR ( Non-Af Amer) > 60, Random Glucose 117 H, Calcium 9.5, Total Bilirubin 0.4, AST 30, ALT 18, Alkaline Phosphatase 56, Lactate Dehydrogenase 458, Total Creatine Kinase 236 H, CK-MB (CK-2) 1.7, CK-MB (CK-2) % Cancelled, Troponin I < 0.01, Total Protein 8.4 H, Albumin 5.2 H, Globulin 3.2, Albumin/Globulin Ratio 1.6 03/29/18 06:10: PT 10.8, INR 0.94, APTT 25.6 - RAD Interpretation Narrative RAD Interpretations (Text): 03/29/18 07:07 Shoulder post reduction- good alignment Radiology Orders: 03/29/18 06:17 HEAD W/O CONTRAST [CT] Stat 03/29/18 06:20 SHOULDER LEFT [RAD] Stat 03/29/18 06:57 SHOULDER LEFT ONE VIEW (OR) [RAD] Stat Occupational Health Nursing Director: ED Physician - EKG Interpretation Interpreted by ED Physician: Yes Type: 12 lead EKG - Medication Orders Current Medication Orders: Discontinued Medications Propofol (Diprivan) 100 mg IVP ONCE ONE Stop: 03/29/18 06:40 ED Procedural Sedation - Pre Anesthesia Assessment Chief Complaint: Seizure Previous Surgies: Reviewed Family History/Social History: Reviewed - Physical Exam/Review of Systems Vital Signs Reviewed: Yes Cardiovascular: Regular Rate and Rhythm, Normal S1, S2, Peripheal Pulses Present. denies: Murmurs Respiratory/Chest: Clear to Auscultation, Good Air Exchange. denies: Respiratory Distress, Accessory Muscle Use Neurological: GCS=15, CN II-XII Intact, Speech Normal, Motor Func Grossly Intact , Normal Sensory Function, Normal Cerebellar Funct Abdomen: Normal Bowel Sounds. denies: Tenderness, Distention, Peritoneal Signs Mental Status: Alert and Oriented X 3 Other pertinent exam: Patients last meal > 5 hours - Pre-Procedure Airway Assessment History of difficult intubation or surgical airway (i.e trach):: No Inability to extend neck:: No Mouth opening less than two finger breadth:: No Diagnosis of sleep apnea:: No Less than three finger breadth to hyoid bone:: No ASA Criteria: 1 - Healthy, normal. 2 - Mild systemic disease (No functional limitations, mildline obesity, DM withot complications, Hypertention). 3 - Severe systemic disease (Some functional limitation, stable angina, morbid obesity, controlled COPD/Asthma/CHF). 4 - Sever systemic disease constant threat to life (Unstable angina, active symptoms of COPD/Asthma, CHF/ Hypertension. 5 - Moribund ASA Clarification: ASA I Mallampati (airway): Class I - Intra-Procedure (Medications) Medications Given: Discontinued Medications Propofol (Diprivan) 100 mg IVP ONCE ONE Stop: 03/29/18 06:40 Procedures - Time-Out Type of Procedure: Manual Reduction Site of Procedure: Left Shoulder - Joint Reduction Joint Reduction Site: shoulder (L) Conscious Sedation: Yes Reduction Attempts: 1 Pre-Procedure NV Exam: Yes Post Joint Reduction Film: joint reduced Progress: Patient tolerated the procedure well w/o any complications/currently resting comfortably - Scribe Statement The provider has reviewed the documentation as recorded by the Scribe Billie Finney All medical record entries made by the Scribe were at my direction and personally dictated by me. I have reviewed the chart and agree that the record accurately reflects my personal performance of the history, physical exam, medical decision making, and the department course for this patient. I have also personally directed, reviewed, and agree with the discharge instructions and disposition. Disposition/Present on Arrival - Present on Arrival Any Indicators Present on Arrival: No History of DVT/PE: No History of Uncontrolled Diabetes: No Urinary Catheter: No History of Decub. Ulcer: No History Surgical Site Infection Following: None - Disposition Have Diagnosis and Disposition been Completed?: No Diagnosis: Seizure, Shoulder dislocation Disposition Time: 07:09 Condition: STABLE Referrals: Rachel Ellis MD [Primary Care Provider] - Follow up with primary Forms: [employer] (Italian)
[2018-03-29 06:29] LABS: HEMOGLOBIN 14.8 g/dL (14.0-18.0); MEAN CELL VOLUME 97.8 fl (80.0-105.0); MEAN CORPUSCULAR HGB CONC 33.7 g/dl (31.0-37.0); RBC 4.49 10^6/uL (3.5-6.1); WHITE BLOOD COUNT 7.7 10^3/ul (4.5-11.0)
[2018-03-29] MEDS ORDERED: Propofol 10 mg/ml Inj (20 ML) ONE (06:38)
[2018-03-29] MEDS ORDERED: Propofol 10 mg/ml Inj (20 ML) IVP ONE (06:39)
[2018-03-29 06:46] LABS: ALB/GLOB RATIO 1.6 (1.1-1.8); ALBUMIN 5.2 g/dL (3.0-4.8); ALT/SGPT 18 U/L (7-56); AST/SGOT 30 U/L (17-59); BLOOD UREA NITROGEN 12 mg/dL (7-21); CALCIUM 9.5 mg/dL (8.4-10.5); GFR NON-AFRICAN AMERICAN > 60
[2018-03-29 06:52] LABS: INR 0.94; PARTIAL THROMBOPLASTIN TIME 25.6 Seconds (25.1-36.5); PROTHROMBIN TIME 10.8 SECONDS (9.4-12.5)
[2018-03-29 06:57] LABS: TROPONIN I < 0.01 ng/mL
[2018-03-29 07:02] LABS: CK-MB 1.7 ng/mL (0.0-3.6)
[2018-03-29 07:09] VITALS: TEMP 98
--- NOTE | 2018-03-29 07:23 | ED PDOC ---
Physical Exam Vital Signs Temp Pulse Resp BP Pulse Ox 03/29/18 09:25 56 L 18 149/89 99 03/29/18 08:00 59 L 17 138/92 H 100 03/29/18 07:05 71 20 126/75 100 03/29/18 06:51 98.0 F 89 17 133/90 100 03/29/18 05:57 97.9 F 103 H 17 148/79 100 Medical Decision Making ED Course and Treatment: 03/29/18 07:10 Patient endorsed to me by Dr. Mckinley. Patient re-evaluated by me. Patient denies any pain at this time and is still recovering from anesthesia. Currently pending labs and Head CT. Patient to remain under observation and is awaiting final disposition. 03/29/2018 08:[address] IMPRESSION: Stable, unremarkable noncontrast head CT. Follow-up MRI available as clinically warranted. Dictator: Denilson Childress MD 03/29/18 11:33 patient is awake and alert, feels much better. with regards to the recurrent shoulder dislocation, the patient has already seen ortho but they have been antagonistic to the idea of surgery. the patient has missed "1 day" of his depakote. at this time the patient has fully recovered from moderate sedation. sling applied to left arm. will give dose of depakote prior to discharge. - Lab Interpretations Lab Results: 03/29/18 06:10 03/29/18 10:30 Lab Results 03/29/18 10:30: Sodium 143, Potassium 4.3, Chloride 107, Carbon Dioxide 27, Anion Gap 13, BUN 12, Creatinine 0.7 L, Est GFR ( Amer) > 60, Est GFR ( Non-Af Amer) > 60, Random Glucose 89, Calcium 8.9 03/29/18 08:30: pO2 38, VBG pH 7.28 L, VBG pCO2 56.0, VBG HCO3 26.3, VBG Total CO2 28.0, VBG O2 Sat (Calc) 72.4 H, VBG Base Excess -1.4 L, VBG Potassium 3.9, Glucose 91, Lactate 1.5, FiO2 21.0, Sodium 138.0, Chloride 103.0, Venous Blood Potassium 3.9 03/29/18 06:10: Valproic Acid < 10 L 03/29/18 06:10: WBC 7.7, RBC 4.49, Hgb 14.8, Hct 43.9, MCV 97.8 D, MCH 33.0, MCHC 33.7, RDW 12.0, Plt Count 267, MPV 10.0 03/29/18 06:10: Sodium 142, Potassium 4.3, Chloride 103, Carbon Dioxide 16 L, Anion Gap 27 H, BUN 12, Creatinine 0.8, Est GFR ( Amer) > 60, Est GFR ( Non-Af Amer) > 60, Random Glucose 117 H, Calcium 9.5, Total Bilirubin 0.4, AST 30, ALT 18, Alkaline Phosphatase 56, Lactate Dehydrogenase 458, Total Creatine Kinase 236 H, CK-MB (CK-2) 1.7, CK-MB (CK-2) % Cancelled, Troponin I < 0.01, Total Protein 8.4 H, Albumin 5.2 H, Globulin 3.2, Albumin/Globulin Ratio 1.6 03/29/18 06:10: PT 10.8, INR 0.94, APTT 25.6 - RAD Interpretation Radiology Orders: 03/29/18 06:17 HEAD W/O CONTRAST [CT] Stat 03/29/18 06:20 SHOULDER LEFT [RAD] Stat 03/29/18 06:57 SHOULDER LEFT [RAD] Stat - Medication Orders Current Medication Orders: Discontinued Medications Sodium Chloride (Sodium Chloride 0.9%) 1,000 mls @ 999 mls/hr IV .Q1H1M STA Stop: 03/29/18 09:00 Last Admin: 03/29/18 08:06 Dose: 999 mls/hr eMAR Start Stop Document 03/29/18 08:06 GMD (Rec: 03/29/18 08:06 GMD [id number]) Intravenous Solution Start Date 03/29/18 Start Time 08:06 End Date 03/29/18 End time 09:07 Total Infusion Time 61 Propofol (Diprivan) 100 mg IVP ONCE ONE Stop: 03/29/18 06:40 Last Admin: 03/29/18 06:51 Dose: 100 mg IVP Administration Document 03/29/18 06:51 IT (Rec: 03/29/18 07:14 IT [id number]) Charges for Administration # of IVP Administrations 1 - Scribe Statement The provider has reviewed the documentation as recorded by the Scribe Montrell Dabdi Provider Petar[place] Attestation: All medical record entries made by the Siddharth were at my direction and personally dictated by me. I have reviewed the chart and agree that the record accurately reflects my personal performance of the history, physical exam, medical decision making, and the department course for this patient. I have also personally directed, reviewed, and agree with the discharge instructions and disposition. Disposition/Present on Arrival - Present on Arrival Any Indicators Present on Arrival: No History of DVT/PE: No History of Uncontrolled Diabetes: No Urinary Catheter: No History of Decub. Ulcer: No History Surgical Site Infection Following: None - Disposition Have Diagnosis and Disposition been Completed?: Yes Diagnosis: Seizure, Shoulder dislocation Disposition: HOME/ ROUTINE Disposition Time: 11:36 Patient Plan: Discharge Patient Problems: Current Active Problems Problem Status Onset Seizure Acute Shoulder dislocation Acute Condition: STABLE Discharge Instructions (ExitCare): Shoulder Dislocation, Moderate Sedation in Adults (DC) Print Language: GIBRALTARIAN Additional Instructions: Follow up with both your neurologist and orthopedic doctor as soon as possible. JULIANA MIGUEL, thank you for letting us take care of you today. Your provider was Dr. Stoney Vega and you were treated for SEIZURE and shoulder dislocation. The emergency medical care you received today was directed at your acute symptoms. If you were prescribed any medication, please fill it and take as directed. It may take several days for your symptoms to resolve. Return to the Emergency Department if your symptoms worsen, do not improve, or if you have any other problems. Please contact your doctor or call one of the physicians/clinics you have been referred to that are listed on the Patient Visit Information form that is included in your discharge packet. Bring any paperwork you were given at discharge with you along with any medications you are taking to your follow up visit. Our treatment cannot replace ongoing medical care by a primary care provider outside of the emergency department. Thank you for allowing the [facility] team to be part of your care today. If you had an X-Ray or CT scan: A Radiologist will review the ED reading if any change in treatment is needed we will contact you. If you had a blood, urine, or wound culture: It will take several days for the results, if any change in treatment is needed we will contact you. If you had an STI test: It will take 48 hours for the results. Please call after 1 week if you have not heard back. Prescriptions: Ibuprofen [Motrin Tab] 600 mg PO QID #42 tab Referrals: Rachel Ellis MD [Primary Care Provider] - Follow up with primary Arnold Llanes MD [Staff Provider] - Follow up with primary Diamante Bernard MD [Staff Provider] - Follow up with primary Forms: [employer] [facility] [facility] (Lao), WORK NOTE
[2018-03-29] MEDS ORDERED: Sodium Chloride 0.9% 1,000 ML IV STA (08:00)
--- NOTE | 2018-03-29 08:36 | CT ---
Date of service: 03/29/2018 PROCEDURE: CT HEAD WITHOUT CONTRAST. HISTORY: syncope/seizure COMPARISON: Noncontrast head CT 03/12/2017. TECHNIQUE: Axial computed tomography images were obtained through the head/brain without intravenous contrast. Radiation dose: Total exam DLP = 823.01 mGy-cm. This CT exam was performed using one or more of the following dose reduction techniques: Automated exposure control, adjustment of the mA and/or kV according to patient size, and/or use of iterative reconstruction technique. FINDINGS: HEMORRHAGE: No intracranial hemorrhage. BRAIN: Normal friend-white matter differentiation and density are appreciated throughout the cerebrum and cerebellum with the brainstem appearing unremarkable as well. There is no mass effect. There is no suspicious extra-axial fluid collection and the midline brain anatomy appears diffusely unremarkable. VENTRICLES: Unremarkable. No hydrocephalus. CALVARIUM: Unremarkable. PARANASAL SINUSES: Unremarkable as visualized. No significant inflammatory changes. MASTOID AIR CELLS: Unremarkable as visualized. No inflammatory changes. OTHER FINDINGS: None. IMPRESSION: Stable, unremarkable noncontrast head CT. Follow-up MRI available as clinically warranted. Concordant preliminary report from [facility], 03/29/2018.
[2018-03-29 08:41] LABS: VENOUS BLOOD GAS BASE EXCESS -1.4 mmol/L (0.0-2.0); VENOUS BLOOD GAS PO2 38 mm/Hg (30-55); VENOUS BLOOD PH 7.28 (7.32-7.43)
[2018-03-29 09:25] VITALS: RESP 18
--- NOTE | 2018-03-29 09:29 | RAD ---
Date of service: 03/29/2018 PROCEDURE: Radiographs of the Left Shoulder HISTORY: injury COMPARISON: No prior. FINDINGS: BONES: Normal. No fracture. JOINTS: There is an anterior dislocation of the left shoulder SOFT TISSUES: Normal. OTHER FINDINGS: None. IMPRESSION: Anterior dislocation of left shoulder
--- NOTE | 2018-03-29 09:32 | RAD ---
Date of service: 03/29/2018 PROCEDURE: Two views left shoulder portable HISTORY: status post reduction COMPARISON: Pre reduction films TECHNIQUE: FINDINGS: There has been successful reduction of the left shoulder dislocation. No fracture IMPRESSION: As above
[2018-03-29 11:02] LABS: BLOOD UREA NITROGEN 12 mg/dL (7-21); CALCIUM 8.9 mg/dL (8.4-10.5); GFR NON-AFRICAN AMERICAN > 60
[2018-03-29] MEDS ORDERED: Divalproex 500 mg DR(BID formulation) PO STA (11:35)
[2018-03-29 11:38] VITALS: PULSE 81; O2SAT 100
[2018-03-29 11:40] VITALS: BP 134/85
--- NOTE | 2018-03-29 19:23 | CARD ---
APPROVED REPORT Date of service: 03/29/2018 EKG Measurement Heart [id number] <Conclusion> Normal sinus rhythm Possible Left atrial enlargement Incomplete right bundle branch block Borderline ECG
== END 2018-03-29 12:30 | disposition home or self-care (01) ==
LOC: ED 05:47
DX: R56.9 Unspecified convulsions (principal); S43.005A Unspecified dislocation of left shoulder joint, initial encounter; W19.XXXA Unspecified fall, initial encounter; Y99.0 Civilian activity done for income or pay
CPT/HCPCS: 23650; 29240; 70450; 73030; 80053; 80164; 82550; 82553; 82803; 83615; 84484; 85027; 85610; 85730; 93005; 96360; 99285; J2704; J7030

== ENCOUNTER 2018-04-01 21:44 | Emergency (ER) | payer MEDICAID ==
[2018-04-01 22:02] VITALS: BMI 21.7
[2018-04-01 22:36] VITALS: RESP 18; O2SAT 100
[2018-04-01] MEDS ORDERED: Propofol 10 mg/ml Inj (20 ML) IVP ONE ×2 (22:57→23:52)
--- NOTE | 2018-04-01 23:04 | ED PDOC ---
Arrival/HPI - General Historian: Patient <Karrie Carey - Last Filed: 04/02/18 01:20> <Noble Mckinley - Last Filed: 04/02/18 04:33> - General Chief Complaint: Upper Extremity Problem/Injury Time Seen by Provider: 04/01/18 21:54 - History of Present Illness Narrative History of Present Illness (Text): 04/01/18 22:59 27-year-old male with a history of seizures and multiple left shoulder dislocations presents today with a left shoulder dislocation. Patient states he slipped in the bathroom and grabbed onto the towel rack with his left arm. Patient states at that point he heard a pop in the shoulder and felt as if the shoulder popped out of place. Patient denies numbness weakness or tingling in the extremity. He denies hitting his head. He denies headaches dizziness or weakness. Patient states he was able to catch himself from falling but injured the shoulder in the process. Incident occurred prior to arrival. No medications have been taken for pain at home. No other complaints (Karrie Carey) Past Medical History - Provider Review Nursing Documentation Reviewed: Yes - Travel History Have you recently traveled outside [place] w/in the past 3 mons?: No - Infectious Disease Hx of Infectious Diseases: None - Tetanus Immunization Tetanus Immunization: Up to Date - Cardiac Hx Cardiac Disorders: No - Pulmonary Hx Respiratory Disorders: Yes Hx Tuberculosis: Yes (last year) - Neurological Hx Neurological Disorder: Yes Hx Seizures: Yes - HEENT Hx HEENT Disorder: No - Renal Hx Renal Disorder: No - Endocrine/Metabolic Hx Endocrine Disorders: No - Hematological/Oncological Hx Blood Disorders: No - Integumentary Hx Dermatological Disorder: No - Musculoskeletal/Rheumatological Hx Musculoskeletal Disorders: No - Gastrointestinal Hx Gastrointestinal Disorders: No - Genitourinary/Gynecological Hx Genitourinary Disorders: No - Psychiatric Hx Psychophysiologic Disorder: No Hx Substance Use: No - Anesthesia Hx Anesthesia: No Hx Anesthesia Reactions: No <Karrie Carey - Last Filed: 04/02/18 01:20> Family/Social History - Physician Review Nursing Documentation Reviewed: Yes Family/Social History: Unknown Family HX Smoking Status: Never Smoked Hx Alcohol Use: No Hx Substance Use: No <Karrie Carey - Last Filed: 08/27/18 01:20> Allergies/Home Meds <CherryKarrie - Last Filed: 04/02/18 01:20> <Noble Mckinley - Last Filed: 04/02/18 04:33> Allergies/Adverse Reactions: Allergies No Known Allergies Allergy (Verified 05/25/17 23:22) Home Medications: Home Meds Medication Instructions Recorded Confirmed Valproic Acid Cap [Depakene Cap] 500 mg PO BID 08/09/16 04/01/18 Review of Systems - Review of Systems Constitutional: absent: Fatigue, Fevers Respiratory: absent: SOB, Cough Cardiovascular: absent: Chest Pain, Palpitations Gastrointestinal: absent: Abdominal Pain, Nausea, Vomiting Genitourinary Male: absent: Dysuria, Frequency, Hematuria Musculoskeletal: Arthralgias (left shoulder pain). absent: Back Pain, Neck Pain Skin: absent: Rash, Pruritis Neurological: absent: Headache, Dizziness Psychiatric: absent: Anxiety, Depression <Karrie Carey - Last Filed: 04/02/18 01:20> Physical Exam Vital Signs Reviewed: Yes Temperature: Afebrile Blood Pressure: Normal Pulse: Regular Respiratory Rate: Normal Appearance: Positive for: Well-Appearing, Non-Toxic, Comfortable Pain Distress: None Mental Status: Positive for: Alert and Oriented X 3 - Systems Exam Head: Present: Atraumatic Mouth: Present: Moist Mucous Membranes Neck: Present: Normal Range of Motion Respiratory/Chest: Present: Clear to Auscultation, Good Air Exchange. No: Respiratory Distress, Accessory Muscle Use Cardiovascular: Present: Regular Rate and Rhythm, Normal S1, S2. No: Murmurs Abdomen: No: Tenderness, Rebound, Guarding Back: Present: Normal Inspection. No: Midline Tenderness, Paraspinal Tenderness Upper Extremity: Present: NORMAL PULSES, Tenderness (left shoulder + ttp over anterior shoulder; + deformity noted; limited ROM of shoulder; sensation and distal pulses intact. cap refill <2. ), Neurovascularly Intact, Capillary Refill < 2s, Deformity. No: Normal ROM, Erythema, Temperature Abnormalties Neurological: Present: GCS=15, Speech Normal Skin: Present: Warm, Dry, Normal Color. No: Rashes Psychiatric: Present: Alert, Oriented x 3 <Karrie Carey - Last Filed: 04/02/18 01:20> Vital Signs Temp Pulse Resp BP Pulse Ox 04/02/18 00:10 71 18 133/82 100 04/01/18 23:52 71 18 131/76 97 04/01/18 23:48 75 18 137/83 97 04/01/18 22:34 97.9 F 82 18 133/84 100 Medical Decision Making <aKrrie Carey - Last Filed: 04/02/18 01:20> <Noble Mckinley - Last Filed: 04/02/18 04:33> ED Course and Treatment: 04/01/18 23:01 27-year-old male with left shoulder dislocation status post injury. X-rays of the left shoulder show a positive dislocation Conscious sedation using propofol Status post reduction x-rays of the left shoulder show a completely reduced shoulder with no signs of fracture. Patient is neurovascularly intact after procedure Patient was placed into a shoulder immobilizer Patient reassessment: Patient nontoxic well-appearing in no distress with stable vital signs feeling better denies any pain. Stressed the importance of follow-up with the orthopedist within the next 2 days. I stressed the importance of using the shoulder immobilizer. Advised return if symptoms worsen persist or if new concerning symptoms develop Patient verbalizes understanding of discharge instructions and need for immediate followup. all aspects of this case were discussed the attending of record. Impression: Shoulder dislocation Follow-up with primary care physician within the next 2 days Follow-up with the orthopedist within the next 2 days Use shoulder immobilizer Return immediately if symptoms worsen persist or if new concerning symptoms develop 04/02/18 00:21 (Karrie Carey) - RAD Interpretation Radiology Orders: 04/01/18 22:08 SHOULDER LEFT [RAD] Stat 04/01/18 23:55 SHOULDER LEFT [RAD] Stat - Medication Orders Current Medication Orders: Discontinued Medications Propofol (Diprivan) 60 mg IVP ONCE ONE Stop: 04/01/18 22:58 Last Admin: 04/01/18 23:43 Dose: 60 mg IVP Administration Document 04/01/18 23:43 MECHE (Rec: 04/02/18 02:05 [id number]) Charges for Administration # of IVP Administrations 1 Propofol (Diprivan) 40 mg IVP ONCE ONE Stop: 04/01/18 23:53 Last Admin: 04/01/18 23:46 Dose: 40 mg IVP Administration Document 04/01/18 23:46 MECHE (Rec: 04/02/18 02:06 [id number]) Charges for Administration # of IVP Administrations 1 ED Procedural Sedation - Pre Anesthesia Assessment Past Medical History: Medications Reviewed, Allergies Reviewed, Record Review Previous Surgies: Reviewed Family History/Social History: Reviewed - Physical Exam/Review of Systems Vital Signs Reviewed: Yes Cardiovascular: Regular Rate and Rhythm Respiratory/Chest: Clear to Auscultation Neurological: GCS=15 Mental Status: Alert and Oriented X 3 - Pre-Procedure Airway Assessment History of difficult intubation or surgical airway (i.e trach):: No Inability to extend neck:: No Mouth opening less than two finger breadth:: No Diagnosis of sleep apnea:: No Less than three finger breadth to hyoid bone:: No ASA Criteria: 1 - Healthy, normal. 2 - Mild systemic disease (No functional limitations, mildline obesity, DM withot complications, Hypertention). 3 - Severe systemic disease (Some functional limitation, stable angina, morbid obesity, controlled COPD/Asthma/CHF). 4 - Sever systemic disease constant threat to life (Unstable angina, active symptoms of COPD/Asthma, CHF/ Hypertension. 5 - Moribund ASA Clarification: ASA I Mallampati (airway): Class I <Karrie Carey - Last Filed: 04/02/18 01:20> - Physical Exam/Review of Systems Abdomen: Other (Pt states he last ate at 19:00.) <Noble Mckinley - Last Filed: 04/02/18 04:33> - Pre Anesthesia Assessment Chief Complaint: Upper Extremity Problem/Injury Nursing ED Procedural Sedation: ER Moderate Sedation Start: 04/02/18 02: 14 Freq: Status: Active Created 04/02/18 02:14 (Rec: 04/02/18 02:14 [id number]) - Intra-Procedure (Medications) Medications Given: Discontinued Medications Propofol (Diprivan) 60 mg IVP ONCE ONE Stop: 04/01/18 22:58 Last Admin: 04/01/18 23:43 Dose: 60 mg IVP Administration Document 04/01/18 23:43 (Rec: 04/02/18 02:05 [id number]) Charges for Administration # of IVP Administrations 1 Propofol (Diprivan) 40 mg IVP ONCE ONE Stop: 04/01/18 23:53 Last Admin: 04/01/18 23:46 Dose: 40 mg IVP Administration Document 04/01/18 23:46 MECHE (Rec: 04/02/18 02:06 [facility]-[id number]) Charges for Administration # of IVP Administrations 1 Procedures - Time-Out Type of Procedure: left shoulder reduction Site of Procedure: Left shoulder Correct Patient (with visual ID + MR# on ID Band): Yes Correct Procedure: Yes Physician Name: Dr. Mckinley PA/Tech: Karrie Carey - Joint Reduction Joint Reduction Site: shoulder (L) Conscious Sedation: Yes Reduction Attempts: 1 Pre-Procedure NV Exam: Yes Post Joint Reduction Film: joint reduced <Karrie Carey - Last Filed: 04/02/18 01:20> - PA / TRASH HAULER / Resident Statement / has reviewed & agrees with the documentation as recorded. / has examined the patient and agrees with the treatment plan. <Noble Mckinley - Last Filed: 04/02/18 04:33> Disposition/Present on Arrival - Present on Arrival Any Indicators Present on Arrival: No History of DVT/PE: No History of Uncontrolled Diabetes: No Urinary Catheter: No History of Decub. Ulcer: No History Surgical Site Infection Following: None - Disposition Have Diagnosis and Disposition been Completed?: Yes Disposition Time: 00:21 Patient Plan: Discharge <Karrie Carey - Last Filed: 04/02/18 01:20> <Noble Mckinley - Last Filed: 04/02/18 04:33> - Disposition Diagnosis: Shoulder dislocation Disposition: HOME/ ROUTINE Condition: GOOD Discharge Instructions (ExitCare): Shoulder Dislocation (DC) Additional Instructions: Follow-up with primary care physician within the next 2 days Follow-up with the orthopedist within the next 2 days Use shoulder immobilizer Return immediately if symptoms worsen persist or if new concerning symptoms develop Referrals: Rachel Ellis MD [Primary Care Provider] - Follow up with primary Diamante Bernard MD [Staff Provider] - Follow up with primary [facility] [Outside] - Follow up with primary Forms: [employer] (Luxembourgish), WORK NOTE
[2018-04-02 00:32] VITALS: BP 133/82; PULSE 71
[2018-04-02 06:19] VITALS: TEMP 98
--- NOTE | 2018-04-02 10:50 | RAD ---
Date of service: 04/01/2018 PROCEDURE: Radiographs of the Left Shoulder HISTORY: shoulder pain s/p fall COMPARISON: No prior. FINDINGS: BONES: Normal. No fracture. JOINTS: There is anterior dislocation of the shoulder SOFT TISSUES: Normal. OTHER FINDINGS: None. IMPRESSION: Anterior dislocation
--- NOTE | 2018-04-02 10:51 | RAD ---
Date of service: 04/02/2018 PROCEDURE: Left shoulder HISTORY: s/p reduction COMPARISON: Earlier film TECHNIQUE: Two views FINDINGS: There has been successful reduction of the left shoulder dislocation. There is flattening of the lateral aspect of the humeral head probably due to chronic dislocation. IMPRESSION: Successful reduction of left shoulder dislocation
== END 2018-04-02 00:55 | disposition home or self-care (01) ==
LOC: ED 21:44
DX: S43.005A Unspecified dislocation of left shoulder joint, initial encounter (principal); W18.40XA Slipping, tripping and stumbling without falling, unspecified, initial encounter; Y92.002 Bathroom of unspecified non-institutional (private) residence as the place of occurrence of the external cause
CPT/HCPCS: 23650; 73030; 99284; J2704

== ENCOUNTER 2018-06-07 20:39 | Emergency (ER) | payer MEDICAID ==
[2018-06-07 20:48] VITALS: BMI 18.8
[2018-06-07 20:54] VITALS: RESP 18
[2018-06-07 21:14] LABS: BASO # 0.02 K/mm3 (0.0-2.0); BASO % 0.3 % (0.0-3.0); EOS # 0.1 (0.0-0.7); EOS % 0.8 % (1.5-5.0); GRAN # 3.78 (1.4-6.5); GRAN % 59.7 % (50.0-68.0); HEMOGLOBIN 13.9 g/dL (14.0-18.0); LYMPH # 1.8 (1.2-3.4); LYMPH % 28.3 % (22.0-35.0); MEAN CELL VOLUME 97.1 fl (80.0-105.0); MEAN CORPUSCULAR HEMOGLOBIN 33.5 pg (25.0-35.0); MEAN CORPUSCULAR HGB CONC 34.5 g/dl (31.0-37.0); MONO # 0.7 (0.1-0.6); MONO % 10.9 % (1.0-6.0); RBC 4.15 10^6/uL (3.5-6.1); RED CELL DISTRIBUTION WIDTH 12.3 % (11.5-14.5); WHITE BLOOD COUNT 6.3 10^3/uL (4.5-11.0)
[2018-06-07] MEDS ORDERED: Lidocaine 1% 5ml Abboject IJ STA (21:36)
--- NOTE | 2018-06-07 21:45 | ED PDOC ---
Arrival/HPI - General Chief Complaint: Seizure Time Seen by Provider: 06/07/18 20:42 Historian: Patient - History of Present Illness Narrative History of Present Illness (Text): 06/07/18 21:52 27 year old male, whose past medical history includes seizures and multiple left shoulder dislocations, presents to the emergency department with a left shoulder dislocation, status post seizure 30 minutes ago. Patient states he missed his seizure medication today. Patient states he did not hurt his head, or any other area of his body, only his shoulder. Patient denies any fevers, chills, headache, dizziness, chest pain, shortness of breath, cough, abdominal pain, nausea, vomiting, diarrhea, back pain, neck pain, urinary/bowel changes, or any other complaint. Time/Duration: 1/2 hour Symptom Course: Unchanged Activities at Onset: Light Past Medical History - Provider Review Nursing Documentation Reviewed: Yes - Infectious Disease Hx of Infectious Diseases: None - Tetanus Immunization Tetanus Immunization: Up to Date - Cardiac Hx Cardiac Disorders: No - Pulmonary Hx Respiratory Disorders: Yes Hx Tuberculosis: Yes (last year) - Neurological Hx Neurological Disorder: Yes Hx Seizures: Yes - HEENT Hx HEENT Disorder: No - Renal Hx Renal Disorder: No - Endocrine/Metabolic Hx Endocrine Disorders: No - Hematological/Oncological Hx Blood Disorders: No - Integumentary Hx Dermatological Disorder: No - Musculoskeletal/Rheumatological Hx Musculoskeletal Disorders: No - Gastrointestinal Hx Gastrointestinal Disorders: No - Genitourinary/Gynecological Hx Genitourinary Disorders: No - Psychiatric Hx Psychophysiologic Disorder: No Hx Substance Use: No - Anesthesia Hx Anesthesia: No Hx Anesthesia Reactions: No Family/Social History - Physician Review Nursing Documentation Reviewed: Yes Family/Social History: No Known Family HX Smoking Status: Never Smoked Hx Alcohol Use: No Hx Substance Use: No Allergies/Home Meds Allergies/Adverse Reactions: Allergies No Known Allergies Allergy (Verified 06/07/18 20:48) Home Medications: Home Meds Medication Instructions Recorded Confirmed RX: Valproic Acid Cap [Depakene 1,000 mg PO BID 08/09/16 06/07/18 Cap] Review of Systems - Physician Review All systems were reviewed & negative as marked: Yes - Review of Systems Constitutional: absent: Fevers, Night Sweats Respiratory: absent: SOB, Cough Cardiovascular: absent: Chest Pain Gastrointestinal: absent: Diarrhea, Nausea, Vomiting Genitourinary Male: absent: Urinary Output Changes Musculoskeletal: Arthralgias (left shoulder s/p dislocation). absent: Back Pain, Neck Pain Neurological: absent: Headache, Dizziness Physical Exam - Physical Exam Narrative Physical Exam (Text): 06/07/18 21:55 Gen: VS reviewed, alert, well developed, well nourished, nontoxic, mild distress. ENT: normal pharynx. Eye: EOMI, PERRL. Neck: no JVD, supple, no adenopathy. CV: regular rate, regular rhythm, no rubs, no murmur, no gallops, S1, S2, pulses equal and strong. Pulm: no distress, clear to auscultation, no wheeze, no rhonchi, breath sounds equal, no rales. Abd: soft, nontender, no guarding, no rebound, no rigidity, normal bowel sounds. Ext: no edema, dislocation of left shoulder. Skin: good color, no rash, no cyanosis. Psych: responds appropriately to questions, normal affect. Neuro: oriented x 3, CN2-12 intact grossly, motor intact, sensation intact. Vital Signs Reviewed: Yes Vital Signs Pulse Resp BP Pulse Ox 06/07/18 20:53 101 H 18 147/88 94 L Blood Pressure: Normal Pulse: Tachycardic Respiratory Rate: Normal Appearance: Positive for: Well-Appearing, Non-Toxic, Comfortable Pain Distress: None Mental Status: Positive for: Alert and Oriented X 3 Medical Decision Making ED Course and Treatment: 06/07/18 21:58 Impression: 27 year old male, presents with left shoulder dislocation status post seizure. Plan: -- EKG -- Lidocaine -- X-ray left shoulder -- Reassess and disposition Prior Visits: Notes and results from previous visits were reviewed. Progress Notes: 06/07/18 23:57 breathrough seizure, patient missed dose of his antiepileptic today, sustained another shoulder dislocation, no other evidence of trauma, labs ok, no prolonged postictal period. at this time will continue to monitor anesthesia recovery. - Lab Interpretations Lab Results: 06/07/18 20:55 Lab Results 06/07/18 20:55: WBC 6.3, RBC 4.15, Hgb 13.9 L, Hct 40.3 L, MCV 97.1, MCH 33.5, MCHC 34.5, RDW 12.3, Plt Count 253, MPV 10.0, Gran % 59.7, Lymph % (Auto) 28.3, Edgar % (Auto) 10.9 H, Eos % (Auto) 0.8 L, Baso % (Auto) 0.3, Gran # 3.78, Lymph # (Auto) 1.8, Edgar # (Auto) 0.7 H, Eos # (Auto) 0.1, Baso # (Auto) 0.02 - RAD Interpretation Narrative RAD Interpretations (Text): 06/07/18 21:40 shoulder xray my read: no fracture, inferior dislocation, new when compared to previous xray on file 06/07/18 23:27 Followup shoulder xray my read: successful reduction of shoulder dislocation, no fracture Radiology Orders: 06/07/18 21:26 SHOULDER LEFT ONE VIEW (OR) [RAD] Stat Enterprise Resource Analyst: ED Physician - EKG Interpretation EKG Interpretation (Text): 06/07/18 21:08 nsr at 92 bpm, nml qrs, nml axis, no acute sttw abn Interpreted by ED Physician: Yes - Medication Orders Current Medication Orders: Discontinued Medications Lidocaine HCl (Lidocaine 1% 5 Ml) 200 mg IJ STAT STA Stop: 06/07/18 21:37 Procedures - Joint Reduction Joint Reduction Site: shoulder (L) Conscious Sedation: Yes Reduction Attempts: 1 Pre-Procedure NV Exam: Yes Post Joint Reduction Film: joint reduced Progress: at 1052p Immediately prior to procedure a "time out" was called to verify the correct patient, procedure and site. Consent written obtained. Under constant monitoring of pulse oximetry, heart rate, rhythm and blood pressure, patient was administered intravenous medication by me : (+) fentanyl (+) propofol I was assisted by a registered nurse, an independent trained observer. Patient tolerated the procedure well, without evidence of cardiopulmonary instability. Recovery from sedation was adequate. Reversal agent: (-) administered. The patient was under my continuous direct care during the moderate sedation. See nursing notes for more details. Re-examination reveals patient is stable for discharge. Patient was instructed to neither drive nor operate dangerous machinery for at least 6-12 hours. After patient was noted to be sedated and comfortable, the left shoulder was successfully reduced after 2 attempts. - Scribe Statement The provider has reviewed the documentation as recorded by the Siddharth Hardin Provider Scribe Attestation: All medical record entries made by the Scribe were at my direction and personally dictated by me. I have reviewed the chart and agree that the record accurately reflects my personal performance of the history, physical exam, medical decision making, and the department course for this patient. I have also personally directed, reviewed, and agree with the discharge instructions and disposition. Disposition/Present on Arrival - Present on Arrival Any Indicators Present on Arrival: No History of DVT/PE: No History of Uncontrolled Diabetes: No Urinary Catheter: No History of Decub. Ulcer: No History Surgical Site Infection Following: None - Disposition Have Diagnosis and Disposition been Completed?: Yes Diagnosis: Seizure disorder, Shoulder dislocation, recurrent Disposition: HOME/ ROUTINE Disposition Time: 01:15 Patient Plan: Discharge Condition: STABLE Discharge Instructions (ExitCare): Shoulder Dislocation, Seizures, Adult (DC), Moderate Sedation in Adults (DC) Additional Instructions: Please do not miss any doses of your seizure medication. You should consider surgery for your shoulder dislocations. JULIANA MIGUEL, thank you for letting us take care of you today. Your provider was Dr. Stoney Vega and you were treated for SEIZURE and shoulder dislocation. The emergency medical care you received today was directed at your acute symptoms. If you were prescribed any medication, please fill it and take as directed. It may take several days for your symptoms to resolve. Return to the Emergency Department if your symptoms worsen, do not improve, or if you have any other problems. Please contact your doctor or call one of the physicians/clinics you have been referred to that are listed on the Patient Visit Information form that is included in your discharge packet. Bring any paperwork you were given at discharge with you along with any medications you are taking to your follow up visit. Our treatment cannot replace ongoing medical care by a primary care clayton brantley outside of the emergency department. Thank you for allowing the [facility] team to be part of your care today. If you had an X-Ray or CT scan: A Radiologist will review the ED reading if any change in treatment is needed we will contact you. If you had a blood, urine, or wound culture: It will take several days for the results, if any change in treatment is needed we will contact you. If you had an STI test: It will take 48 hours for the results. Please call after 1 week if you have not heard back. Referrals: Diamante Bernard MD [Staff Provider] - Follow up with primary Forms: [employer] (Greenlandic), WORK NOTE
[2018-06-07] MEDS ORDERED: Propofol 10 mg/ml Inj (20 ML) IVP ONE ×5 (22:21→23:05)
[2018-06-07] MEDS ORDERED: Propofol 10 mg/ml Inj (20 ML) ONE (22:22)
[2018-06-07 22:23] LABS: BLOOD UREA NITROGEN 11 mg/dL (7-21); CALCIUM 9.4 mg/dL (8.4-10.5); GFR NON-AFRICAN AMERICAN > 60
[2018-06-07 22:24] LABS: ALB/GLOB RATIO 1.5 (1.1-1.8)
[2018-06-07 22:25] LABS: ALT/SGPT 19 U/L (7-56); AST/SGOT 36 U/L (17-59)
[2018-06-07] MEDS ORDERED: Divalproex 500 mg DR(BID formulation) PO STA (23:49)
[2018-06-08 01:03] VITALS: BP 133/84; PULSE 83
[2018-06-08 01:33] VITALS: O2SAT 100
[2018-06-08 01:43] VITALS: TEMP 98.7
--- NOTE | 2018-06-08 09:39 | RAD ---
Date of service: 06/07/2018 PROCEDURE: Radiographs of the Left Shoulder HISTORY: dislocation COMPARISON: No prior. FINDINGS: BONES: Normal. No fracture. JOINTS: Anterior dislocation SOFT TISSUES: Normal. OTHER FINDINGS: None. IMPRESSION: Anterior dislocation
--- NOTE | 2018-06-08 09:39 | RAD ---
Date of service: 06/07/2018 PROCEDURE: Radiographs of the Left Shoulder HISTORY: post reduction view COMPARISON: No prior. FINDINGS: BONES: Normal. No fracture. JOINTS: There is successful reduction of the anterior dislocation SOFT TISSUES: Normal. OTHER FINDINGS: None. IMPRESSION: Successful reduction of anterior dislocation
--- NOTE | 2018-06-08 12:55 | CARD ---
APPROVED REPORT Date of service: 06/07/2018 EKG Measurement Heart [id number] <Conclusion> Normal sinus rhythm Normal ECG
[2018-06-08] MEDS ORDERED: Propofol 10 mg/ml Inj (20 ML) IVP ONE (23:03)
== END 2018-06-08 01:15 | disposition home or self-care (01) ==
LOC: ED 20:39
DX: M24.412 Recurrent dislocation, left shoulder (principal); G40.909 Epilepsy, unspecified, not intractable, without status epilepticus
CPT/HCPCS: 23650; 73020; 73030; 80053; 82948; 83735; 85025; 93005; 99285; J2704; J3010

== ENCOUNTER 2018-07-12 11:37 | Inpatient (IN) | payer MEDICAID ==
[2018-07-12 11:38] VITALS: BMI 18.8
[2018-07-12] MEDS ORDERED: Morphine 4 mg/ml ISec IVP STA (12:42)
--- NOTE | 2018-07-12 12:47 | ED PDOC ---
Arrival/HPI - General Chief Complaint: Upper Extremity Problem/Injury - History of Present Illness Narrative History of Present Illness (Text): 27 y/o M w/ h/o repeated shoulder dislocations & seizure disorder presents to the Emergency Room with complaint of left shoulder pain. The patient states he was working at his job when he felt his shoulder slip out out his socket. He reports feeling immediate pain similar to his previous dislocations. He admits to this being his second dislocation within a month and has seen an orthopedic physician prior, but denies having any surgeries performed. He denies taking any medications for his pain. He denies any falls, sudden movements or forced movement of his left upper extremity. Of note, the patient was previously seen several months in the ED for similar complaint. Time/Duration: Prior to Arrival Symptom Course: Unchanged Quality: Aching Severity Level: Moderate Activities at Onset: Rest Context: Work Past Medical History - Provider Review Nursing Documentation Reviewed: Yes - Travel History Have you recently traveled outside [place] w/in the past 3 mons?: No - Infectious Disease Hx of Infectious Diseases: None - Tetanus Immunization Tetanus Immunization: Up to Date - Cardiac Hx Cardiac Disorders: No - Pulmonary Hx Respiratory Disorders: Yes Hx Tuberculosis: Yes (last year) - Neurological Hx Neurological Disorder: Yes Hx Seizures: Yes - HEENT Hx HEENT Disorder: No - Renal Hx Renal Disorder: No - Endocrine/Metabolic Hx Endocrine Disorders: No - Hematological/Oncological Hx Blood Disorders: No - Integumentary Hx Dermatological Disorder: No - Musculoskeletal/Rheumatological Hx Musculoskeletal Disorders: No - Gastrointestinal Hx Gastrointestinal Disorders: No - Genitourinary/Gynecological Hx Genitourinary Disorders: No - Psychiatric Hx Psychophysiologic Disorder: No Hx Substance Use: No - Anesthesia Hx Anesthesia: No Hx Anesthesia Reactions: No Hx Malignant Hyperthermia: No Family/Social History - Physician Review Nursing Documentation Reviewed: Yes Family/Social History: Unknown Family HX Smoking Status: Never Smoked Hx Alcohol Use: No Hx Substance Use: No Allergies/Home Meds Allergies/Adverse Reactions: Allergies No Known Allergies Allergy (Verified 06/07/18 20:48) Home Medications: Home Meds Medication Instructions Recorded Confirmed Valproic Acid Cap [Depakene Cap] 1,000 mg PO BID 08/09/16 06/07/18 Review of Systems - Physician Review All systems were reviewed & negative as marked: Yes - Review of Systems Cardiovascular: absent: Chest Pain Musculoskeletal: Myalgias, Other (Joint pain) Neurological: absent: Headache Physical Exam Vital Signs Reviewed: Yes Vital Signs Temp Pulse Resp BP Pulse Ox 07/12/18 11:38 97.9 F 90 18 144/71 98 Temperature: Afebrile Blood Pressure: Normal Pulse: Regular Respiratory Rate: Normal Appearance: Positive for: Well-Appearing, Non-Toxic, Uncomfortable Pain Distress: Moderate Mental Status: Positive for: Alert and Oriented X 3 - Systems Exam Head: Present: Atraumatic, Normocephalic Pupils: Present: PERRL Extroacular Muscles: Present: EOMI Conjunctiva: Present: Normal Mouth: Present: Moist Mucous Membranes Neck: Present: Normal Range of Motion Respiratory/Chest: Present: Clear to Auscultation, Good Air Exchange. No: Respiratory Distress, Accessory Muscle Use Cardiovascular: Present: Regular Rate and Rhythm, Normal S1, S2. No: Murmurs Abdomen: Present: Normal Bowel Sounds. No: Tenderness, Distention, Peritoneal Signs Upper Extremity: Present: NORMAL PULSES, Tenderness (tenderness to palpation of L acromioclavicular joint), Neurovascularly Intact, Capillary Refill < 2s, Deformity (gross deformity noted to L shoulder). No: Cyanosis, Edema, Swelling, Erythema Lower Extremity: Present: Normal Inspection. No: Edema Neurological: Present: GCS=15, CN II-XII Intact, Speech Normal Skin: Present: Warm, Dry, Normal Color. No: Rashes Psychiatric: Present: Alert, Oriented x 3, Normal Insight, Normal Concentration Medical Decision Making ED Course and Treatment: 07/12/18 12:51 Impression 27M w/ h/o shoulder dislocation presenting with left shoulder pain Differential Diagnoses Include But Are Not Limited To: Anterior Shoulder Dislocation Acromioclavicular Separation Shoulder Fracture Plan --Labs --CXR --EKG --Morphine --IVF --Ketamine --Propofol --Pre/post shoulder XR --Reassess & disposition Progress Notes 07/12/18 16:25 PROCEDURAL SEDATION NOTE Indications: Anterior shoulder dislocation A time out was performed and the correct patient and site were verified. Consent: The risks and benefits of monitored anesthesia care, including the risk of aspiration, deep sedation requiring airway management including possible intubation, nausea/vomiting and the risks of not performing the procedure, including severe pain and inability to complete the procedure, were all discussed with the[patient. The alternatives of performing the procedure, including local anesthesia and IV analgesia, also discussed. The patient has a ride home available. ASA Class: I Mallampati Score: I Monitoring: Continuous monitoring of heart rate, respiratory rate, pulse oximetry and ETCO2. Supplemental oxygen prior to and during procedure via nasal cannula. Resuscitation equipment available at the bedside during sedation. Intra-service start time: 15:16 Intra-service stop time: 16:25 The patient received morphine, propofol, & ketamine with dosages recorded within MAR. The patient was recovered from the sedation without complication or incident. Patient returned to pre-sedation level of awareness, denying complaint of nausea & emesis. Post-anesthesia evaluation: Respiratory function, cardiovascular function, temperature, and mental status did return to pre-anesthetic state. Pain controlled. Portable XR ordered. Sling placed. 07/12/18 16:57 Review of XR reveals shoulder not successfully reduced. Spoke to Dr. Connell(orthopedics) who requests for CT extremity to be performed with XR images to be sent to him for review. Radial pulse intact w/ capillary refill <2 seconds. No numbness/tingling reported by patient. Patient alert and responsive to questions. VSS. 07/12/18 17:[address] Connell unsuccessful. Voicemail left. 07/12/18 17:[address] Connell who requests update once CT imaging has been resulted. 07/12/18 18:16 CT imaging performed. Preliminary review shows CT extremity consistent with anterior L shoulder dislocation. Awaiting results. 07/12/18 19:09 Discussion with rn medical surgical who accepts patient onto medical service. Labs, EKG & CXR ordered. - RAD Interpretation Narrative RAD Interpretations (Text): 07/12/18 13:30 X-ray of left shoulder reviewed by radiologist, shows: FINDINGS: BONES: Normal. No fracture. JOINTS: There is anterior dislocation of the humerus. SOFT TISSUES: Normal. OTHER FINDINGS: None. IMPRESSION: Anterior dislocation of the humerus 07/13/18 08:02 CT Left Shoulder without IV contrast IMPRESSION: Anterior dislocation of the left shoulder. Small separate fragments along the medial aspect of the humeral head. Hill-Sachs deformity suspected. Orthopedic consultation advised. Reviewed by Dr. Ochoa Denny M.D. Radiology Orders: 07/12/18 12:42 SHOULDER LEFT [RAD] Stat Sales Development Director: Radiologist - Medication Orders Current Medication Orders: Discontinued Medications Morphine Sulfate (Morphine) 4 mg IVP STAT STA Stop: 07/12/18 12:43 Disposition/Present on Arrival - Present on Arrival Any Indicators Present on Arrival: No History of DVT/PE: No History of Uncontrolled Diabetes: No Urinary Catheter: No History of Decub. Ulcer: No History Surgical Site Infection Following: None - Disposition Have Diagnosis and Disposition been Completed?: Yes Diagnosis: Anterior shoulder dislocation Disposition: HOME/ ROUTINE Disposition Time: 16:27 Patient Plan: Discharge Patient Problems: Current Active Problems Problem Status Onset Anterior shoulder dislocation Acute Condition: IMPROVED
[2018-07-12] MEDS ORDERED: Propofol 10 mg/ml Inj (20 ML) IVP ONE ×3 (13:20→18:35)
--- NOTE | 2018-07-12 13:30 | RAD ---
Date of service: 07/12/2018 PROCEDURE: Radiographs of the Left Shoulder HISTORY: dislocation COMPARISON: No prior. FINDINGS: BONES: Normal. No fracture. JOINTS: There is anterior dislocation of the humerus. SOFT TISSUES: Normal. OTHER FINDINGS: None. IMPRESSION: Anterior dislocation of the humerus
[2018-07-12] MEDS ORDERED: Sodium Chloride 0.9% 1,000 ML IV STA (13:32)
[2018-07-12] MEDS ORDERED: Ketamine 50 mg/ml Inj (10 ml) IV ONE (15:46)
[2018-07-12] MEDS ORDERED: Ketamine 10 mg/ml Inj (20 ml) IV ONE (15:57)
--- NOTE | 2018-07-12 17:45 | RAD ---
Date of service: 07/12/2018 PROCEDURE: Radiographs of the Left Shoulder HISTORY: reduction COMPARISON: July 12, 2018 pre reduction radiographs FINDINGS: BONES: No visible fracture. JOINTS: Persistent anterior dislocation of the left humeral head relative to the glenoid. SOFT TISSUES: Normal. OTHER FINDINGS: None. IMPRESSION: Status post attempted reduction. Persistent dislocation left shoulder.
[2018-07-12 19:36] LABS: BASO # 0.05 K/mm3 (0.0-2.0); BASO % 0.7 % (0.0-3.0); EOS % 0.3 % (1.5-5.0); GRAN # 5.18 (1.4-6.5); GRAN % 69.3 % (50.0-68.0); HEMOGLOBIN 13.1 g/dL (14.0-18.0); LYMPH # 1.5 (1.2-3.4); LYMPH % 20.5 % (22.0-35.0); MEAN CELL VOLUME 98.5 fl (80.0-105.0); MEAN CORPUSCULAR HEMOGLOBIN 33.1 pg (25.0-35.0); MEAN CORPUSCULAR HGB CONC 33.6 g/dl (31.0-37.0); MEAN PLATELET VOLUME 10.6 fl (7.0-11.0); MONO # 0.7 (0.1-0.6); MONO % 9.2 % (1.0-6.0); RBC 3.96 10^6/uL (3.5-6.1); RED CELL DISTRIBUTION WIDTH 12.3 % (11.5-14.5); WHITE BLOOD COUNT 7.5 10^3/uL (4.5-11.0)
[2018-07-12 19:48] LABS: ALB/GLOB RATIO 1.3 (1.1-1.8); ALBUMIN 4.6 g/dL (3.0-4.8); ALT/SGPT 25 U/L (7-56); AST/SGOT 39 U/L (17-59); BLOOD UREA NITROGEN 9 mg/dL (7-21); CALCIUM 9.6 mg/dL (8.4-10.5); GFR NON-AFRICAN AMERICAN > 60
[2018-07-12 20:27] LABS: URINE BILIRUBIN NEGATIVE (NEGATIVE); URINE BLOOD NEGATIVE (NEGATIVE); URINE GLUCOSE (UA) NEGATIVE (NEGATIVE); URINE LEUKOCYTE ESTERASE NEGATIVE Leu/uL (NEGATIVE); URINE PROTEIN NEGATIVE mg/dL (<30 mg/dL); URINE UROBILINOGEN 0.2 E.U./dL (<1 E.U./dL)
[2018-07-12 20:30] LABS: URINE APPEARANCE CLEAR (CLEAR); URINE COLOR YELLOW (YELLOW)
--- NOTE | 2018-07-12 21:32 | CP.PCM.HP ---
<Pollo Juan - Last Filed: 07/13/18 01:13> History of Present Illness - History of Present Illness History of Present Illness: Pollo Juan, PGY-1 Hospital H&P This is a 27 year old male with PMH of seizures on valpoic acid and history of shoulder dislocations presenting to the ED for left shoulder dislocation. 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 He denies any seizure symptoms at time of incident including confusion, muscle atony, urinary/stool incontinence and tongue biting. He says this pain is similar to previous episodes of shoulder dislocations and admits to two episodes of left shoulder dislocation this month. He admits to being compliant with his his seizure medications. He denies recent trauma, sickness, lifestyle changes, travel, chest pain, SOB, fevers, headaches, nausea, vomiting, back pain, abdominal pain, urinary complaints, numbness, ti ngling, swelling, muscle weakness and any incontinence. 12 point ROS noted here, otherwise unremarkable. PMD: Jean Claude Kee PMH: seizures, history of shoulder dislocations Meds: valproic acid 500mg BID SH: denies smoking, drinking and drugs Sx: denies All: NKDA FH: denies Present on Admission - Present on Admission Any Indicators Present on Admission: No Past Patient History - Infectious Disease Hx of Infectious Diseases: None - Tetanus Immunizations Tetanus Immunization: Up to Date - Past Social History Smoking Status: Never Smoked - CARDIAC Hx Cardiac Disorders: No - PULMONARY Hx Respiratory Disorders: Yes Hx Tuberculosis: Yes (last year) - NEUROLOGICAL Hx Neurological Disorder: Yes Hx Seizures: Yes - HEENT Hx HEENT Problems: No - RENAL Hx Chronic Kidney Disease: No - ENDOCRINE/METABOLIC Hx Endocrine Disorders: No - HEMATOLOGICAL/ONCOLOGICAL Hx Blood Disorders: No - INTEGUMENTARY Hx Dermatological Problems: No - MUSCULOSKELETAL/RHEUMATOLOGICAL Hx Musculoskeletal Disorders: No - GASTROINTESTINAL Hx Gastrointestinal Disorders: No - GENITOURINARY/GYNECOLOGICAL Hx Genitourinary Disorders: No - PSYCHIATRIC Hx Psychophysiologic Disorder: No Hx Substance Use: No - SURGICAL HISTORY Hx Surgeries: No - ANESTHESIA Hx Anesthesia: No Hx Anesthesia Reactions: No Hx Malignant Hyperthermia: No Meds Allergies/Adverse Reactions: Allergies Allergy/AdvReac Type Severity Reaction Status Date / Time No Known Allergies Allergy Verified 06/07/18 20:48 Physical Exam - Constitutional Appears: No Acute Distress - Head Exam Head Exam: ATRAUMATIC, NORMAL INSPECTION - Eye Exam Eye Exam: EOMI Pupil Exam: PERRL - ENT Exam ENT Exam: Mucous Membranes Moist - Neck Exam Neck exam: Positive for: Normal Inspection - Respiratory Exam Respiratory Exam: Clear to Auscultation Bilateral. absent: Accessory Muscle Use, Wheezes, Respiratory Distress - Cardiovascular Exam Cardiovascular Exam: REGULAR RHYTHM, +S1, +S2 - GI/Abdominal Exam GI & Abdominal Exam: Normal Bowel Sounds, Soft. absent: Firm, Guarding, Tenderness - Extremities Exam Extremities exam: Positive for: pedal pulses present Additional comments: Left should is wrapped in sling, patient is unable to move arm without significant pain. Able to move left hand fingers without complaints and sensation intact throughout left arm and left shoulder. Left shoulder tenderness appreciated with palpation along anterior and posterior joint areas. Radial and pedal pulses +2 B/L. No motor or sensory deficits noted B/L in upper and lower extremities. - Back Exam Back exam: NORMAL INSPECTION - Neurological Exam Neurological exam: Alert, CN II-XII Intact, Oriented x3 - Skin Skin Exam: Normal Color, Warm Results - Vital Signs Recent Vital Signs: Last Vital Signs Temp 98.3 F 07/12/18 20:52 Pulse 66 07/12/18 20:52 Resp 18 07/12/18 20:52 BP 149/88 07/12/18 20:52 Pulse Ox 100 07/12/18 20:52 - Labs Result Diagrams: 07/12/18 19:03 07/12/18 19:03 Labs: Laboratory Results - last 24 hr 07/12/18 07/12/18 07/12/18 19:03 19:03 19:48 WBC 7.5 RBC 3.96 Hgb 13.1 L Hct 39.0 L MCV 98.5 MCH 33.1 MCHC 33.6 RDW 12.3 Plt Count 284 MPV 10.6 Gran % 69.3 H Lymph % (Auto) 20.5 L [place] % (Auto) 9.2 H Eos % (Auto) 0.3 L Baso % (Auto) 0.7 Gran # 5.18 Lymph # (Auto) 1.5 [place] # (Auto) 0.7 H Eos # (Auto) 0.0 Baso # (Auto) 0.05 Sodium 140 Potassium 3.4 L Chloride 102 Carbon Dioxide 25 Anion Gap 16 BUN 9 Creatinine 0.7 L Est GFR ( Amer) > 60 Est GFR (Non-Af Amer) > 60 Random Glucose 51 L Calcium 9.6 Total Bilirubin 0.4 AST 39 ALT 25 Alkaline Phosphatase 72 Total Protein 8.3 Albumin 4.6 Globulin 3.7 Albumin/Globulin Ratio 1.3 Urine Color Urine Appearance Urine pH Ur Specific [place] Urine Protein Urine Glucose (UA) Urine Ketones Urine Blood Urine Nitrate Urine Bilirubin Urine Urobilinogen Ur Leukocyte Esterase Blood Type B POSITIVE Antibody Screen Negative BBK History Checked No verified bt 07/12/18 20:00 WBC RBC Hgb Hct MCV MCH MCHC RDW Plt Count MPV Gran % Lymph % (Auto) [place] % (Auto) Eos % (Auto) Baso % (Auto) Gran # Lymph # (Auto) [place] # (Auto) Eos # (Auto) Baso # (Auto) Sodium Potassium Chloride Carbon Dioxide Anion Gap BUN Creatinine Est GFR ( Amer) Est GFR (Non-Af Amer) Random Glucose Calcium Total Bilirubin AST ALT Alkaline Phosphatase Total Protein Albumin Globulin Albumin/Globulin Ratio Urine Color Yellow Urine Appearance Clear Urine pH 8.0 Ur Specific [place] 1.015 Urine Protein Negative Urine Glucose (UA) Negative Urine Ketones Negative Urine Blood Negative Urine Nitrate Negative Urine Bilirubin Negative Urine Urobilinogen 0.2 Ur Leukocyte Esterase Negative Blood Type Antibody Screen BBK History Checked Assessment & Plan - Assessment and Plan (Free Text) Assessment: This is a 27 year old male with PMH of seizures on valpoic acid and history of shoulder dislocations presenting to the ED for left shoulder dislocation. Plan: Left shoulder dislocation -initial left shoulder xray showed anterior dislocation of humerus -second left shoulder xray after reduction showed persistent dislocation of left shoulder -Upper extremity CT pending final read -Ortho on consult, Dr. Lobato -plan for OR tomorrow -NPO -morphine 1mg q4 prn for pain Hx of seizures -continue valproic acid 500mg BID -seizure precautions Hypokalemia -repleted, f/u AM labs PPX with SCD and pepcid Patient seen and case discussed with attending, Dr. Crespo <Irvin Crespo - Last Filed: 07/13/18 19:06> Results - Vital Signs Recent Vital Signs: Last Vital Signs Temp 97.7 F 07/13/18 08:10 Pulse 61 07/13/18 08:10 Resp 16 07/13/18 08:10 BP 121/78 07/13/18 08:10 Pulse Ox 98 07/13/18 08:10 - Labs Result Diagrams: 07/13/18 05:25 07/13/18 05:25 Labs: Laboratory Results - last 24 hr 07/12/18 07/12/18 07/12/18 19:03 19:03 19:48 WBC 7.5 RBC 3.96 Hgb 13.1 L Hct 39.0 L MCV 98.5 MCH 33.1 MCHC 33.6 RDW 12.3 Plt Count 284 MPV 10.6 Gran % 69.3 H Lymph % (Auto) 20.5 L [place] % (Auto) 9.2 H Eos % (Auto) 0.3 L Baso % (Auto) 0.7 Gran # 5.18 Lymph # (Auto) 1.5 [place] # (Auto) 0.7 H Eos # (Auto) 0.0 Baso # (Auto) 0.05 PT INR APTT Sodium 140 Potassium 3.4 L Chloride 102 Carbon Dioxide 25 Anion Gap 16 BUN 9 Creatinine 0.7 L Est GFR ( Amer) > 60 Est GFR (Non-Af Amer) > 60 POC Glucose (mg/dL) Random Glucose 51 L Calcium 9.6 Total Bilirubin 0.4 AST 39 ALT 25 Alkaline Phosphatase 72 Total Protein 8.3 Albumin 4.6 Globulin 3.7 Albumin/Globulin Ratio 1.3 Urine Color Urine Appearance Urine pH Ur Specific [place] Urine Protein Urine Glucose (UA) Urine Ketones Urine Blood Urine Nitrate Urine Bilirubin Urine Urobilinogen Ur Leukocyte Esterase Blood Type B POSITIVE Blood Type Confirm Antibody Screen Negative BBK History Checked No verified bt 07/12/18 07/12/18 07/13/18 20:00 21:03 00:53 WBC RBC Hgb Hct MCV MCH MCHC RDW Plt Count MPV Gran % Lymph % (Auto) [place] % (Auto) Eos % (Auto) Baso % (Auto) Gran # Lymph # (Auto) [place] # (Auto) Eos # (Auto) Baso # (Auto) PT INR APTT Sodium Potassium Chloride Carbon Dioxide Anion Gap BUN Creatinine Est GFR ( Amer) Est GFR (Non-Af Amer) POC Glucose (mg/dL) 72 Random Glucose Calcium Total Bilirubin AST ALT Alkaline Phosphatase Total Protein Albumin Globulin Albumin/Globulin Ratio Urine Color Yellow Urine Appearance Clear Urine pH 8.0 Ur Specific [place] 1.015 Urine Protein Negative Urine Glucose (UA) Negative Urine Ketones Negative Urine Blood Negative Urine Nitrate Negative Urine Bilirubin Negative Urine Urobilinogen 0.2 Ur Leukocyte Esterase Negative Blood Type Blood Type Confirm B POSITIVE Antibody Screen BBK History Checked 07/13/18 07/13/18 07/13/18 05:25 05:25 05:25 WBC 8.9 RBC 4.06 Hgb 13.5 L Hct 39.4 L MCV 97.0 MCH 33.3 MCHC 34.3 RDW 12.1 Plt Count 280 MPV 9.5 Gran % 73.8 H Lymph % (Auto) 18.7 L [place] % (Auto) 6.9 H Eos % (Auto) 0.3 L Baso % (Auto) 0.3 Gran # 6.53 H Lymph # (Auto) 1.7 [place] # (Auto) 0.6 Eos # (Auto) 0.0 Baso # (Auto) 0.03 PT 12.2 INR 1.06 APTT 31.5 Sodium 139 Potassium 4.5 Chloride 106 Carbon Dioxide 25 Anion Gap 13 BUN 7 Creatinine 0.7 L Est GFR ( Amer) > 60 Est GFR (Non-Af Amer) > 60 POC Glucose (mg/dL) Random Glucose 90 Calcium 9.4 Total Bilirubin 0.6 AST 27 ALT 25 Alkaline Phosphatase 71 Total Protein 7.9 Albumin 4.5 Globulin 3.4 Albumin/Globulin Ratio 1.3 Urine Color Urine Appearance Urine pH Ur Specific [place] Urine Protein Urine Glucose (UA) Urine Ketones Urine Blood Urine Nitrate Urine Bilirubin Urine Urobilinogen Ur Leukocyte Esterase Blood Type Blood Type Confirm Antibody Screen BBK History Checked 07/13/18 11:03 WBC RBC Hgb Hct MCV MCH MCHC RDW Plt Count MPV Gran % Lymph % (Auto) [place] % (Auto) Eos % (Auto) Baso % (Auto) Gran # Lymph # (Auto) [place] # (Auto) Eos # (Auto) Baso # (Auto) PT INR APTT Sodium Potassium Chloride Carbon Dioxide Anion Gap BUN Creatinine Est GFR ( Amer) Est GFR (Non-Af Amer) POC Glucose (mg/dL) 64 L Random Glucose Calcium Total Bilirubin AST ALT Alkaline Phosphatase Total Protein Albumin Globulin Albumin/Globulin Ratio Urine Color Urine Appearance Urine pH Ur Specific [place] Urine Protein Urine Glucose (UA) Urine Ketones Urine Blood Urine Nitrate Urine Bilirubin Urine Urobilinogen Ur Leukocyte Esterase Blood Type Blood Type Confirm Antibody Screen BBK History Checked Attending/Attestation - Attestation I have personally seen and examined this patient.: Yes I have fully participated in the care of the patient.: Yes I have reviewed all pertinent clinical information: Yes
[2018-07-12] MEDS: Morphine 2 mg/ml ISec IVP PRN (22:30)
[2018-07-13] MEDS ORDERED: Potassium Chloride 20 mEq ER Tab PO STA (01:02)
[2018-07-13] MEDS ORDERED: Pneumococcal 23-Valent Vaccine IM ONE (01:10)
[2018-07-13] MEDS ORDERED: Influenza Vaccine 60 mcg/0.5 mL SYR (4YR UP) IM ONE (01:10)
[2018-07-13] MEDS: Morphine 2 mg/ml ISec IVP PRN (02:00)
[2018-07-13 05:40] LABS: BASO # 0.03 K/mm3 (0.0-2.0); BASO % 0.3 % (0.0-3.0); EOS % 0.3 % (1.5-5.0); GRAN # 6.53 (1.4-6.5); GRAN % 73.8 % (50.0-68.0); HEMOGLOBIN 13.5 g/dL (14.0-18.0); LYMPH # 1.7 (1.2-3.4); LYMPH % 18.7 % (22.0-35.0); MEAN CORPUSCULAR HEMOGLOBIN 33.3 pg (25.0-35.0); MEAN CORPUSCULAR HGB CONC 34.3 g/dl (31.0-37.0); MEAN PLATELET VOLUME 9.5 fl (7.0-11.0); MONO # 0.6 (0.1-0.6); MONO % 6.9 % (1.0-6.0); RBC 4.06 10^6/uL (3.5-6.1); RED CELL DISTRIBUTION WIDTH 12.1 % (11.5-14.5); WHITE BLOOD COUNT 8.9 10^3/uL (4.5-11.0)
[2018-07-13 05:48] LABS: INR 1.06; PARTIAL THROMBOPLASTIN TIME 31.5 Seconds (25.1-36.5); PROTHROMBIN TIME 12.2 SECONDS (9.4-12.5)
[2018-07-13] MEDS ORDERED: Propofol 10 mg/ml Inj (20 ML) ONE (06:19)
[2018-07-13] MEDS ORDERED: Lidocaine 1% Inj (20ml) ONE (06:24)
[2018-07-13] MEDS ORDERED: Succinylcholine 200 mg/10 ml Inj IV ONE (06:47)
[2018-07-13] MEDS ORDERED: Rocuronium 10 mg/ml (5 ml) ONE (06:52)
[2018-07-13 06:55] LABS: ALB/GLOB RATIO 1.3 (1.1-1.8); ALBUMIN 4.5 g/dL (3.0-4.8); ALT/SGPT 25 U/L (7-56); AST/SGOT 27 U/L (17-59); BLOOD UREA NITROGEN 7 mg/dL (7-21); CALCIUM 9.4 mg/dL (8.4-10.5); GFR NON-AFRICAN AMERICAN > 60
--- NOTE | 2018-07-13 07:10 | PCM.SURG1 ---
Surgeon's Initial Post Op Note - Surgeon's Notes Surgeon: Luis Alfredo Fitter Type Bar And Segment: - Type of Anesthesia: General Endo Anesthesia Administered By: KITTY VELEZ Pre-Operative Diagnosis: Recurrent ( > 15 times dislocation L shoulder) Operative Findings: as above. xray signs and stigmata of recurrent dislocation L shoulder. L shouyloder recurrent instability Post-Operative Diagnosis: as above Operation Performed: closed redcxution recurrent dislocation L shoulder Specimen/Specimens Removed: n/a Estimated Blood Loss: EBL {In ML}: 0 Blood Products Given: N/A Drains Used: No Drains Post-Op Condition: Good Date of Surgery/Procedure: 07/13/18 Time of Surgery/Procedure: 06:40 (timew in room 619/anaya wiggins time 6:19)
[2018-07-13] MEDS ORDERED: Oxycodone/Acetaminophen 5/325 mg Tab PO PRN (07:15)
--- NOTE | 2018-07-13 07:15 | CP.PCM.CON ---
History of Present Illness - History of Present Illness History of Present Illness: ID: 27 yo male CC: RECURRENT l SHOULDER DISLOCATION hpi: 27 YO MALE SUSTAINED A WORK RELATED INJURY AT [employer] [facility]; PRESENTED TO [facility] er WHERE closewd redcution x 2 failed/ Pt presents and is admitted with chronic L shoulder dislocation; irreducible in ER Past Patient History - Infectious Disease Hx of Infectious Diseases: None (PMH positive for seizure disorder/ part of etiology ofd his chronically dislocating shoulders) - Tetanus Immunizations Tetanus Immunization: Up to Date - Past Social History Smoking Status: Never Smoked - CARDIAC Hx Cardiac Disorders: No - PULMONARY Hx Respiratory Disorders: No - NEUROLOGICAL Hx Neurological Disorder: Yes Hx Seizures: Yes (since 10 years old) - HEENT Hx HEENT Problems: No - RENAL Hx Chronic Kidney Disease: No - ENDOCRINE/METABOLIC Hx Endocrine Disorders: No - HEMATOLOGICAL/ONCOLOGICAL Hx Blood Transfusions: No Hx Blood Transfusion Reaction: No - INTEGUMENTARY Hx Dermatological Problems: No - MUSCULOSKELETAL/RHEUMATOLOGICAL Hx Musculoskeletal Disorders: No Hx Falls: Yes - GASTROINTESTINAL Hx Gastrointestinal Disorders: No - GENITOURINARY/GYNECOLOGICAL Hx Genitourinary Disorders: No - PSYCHIATRIC Hx Psychophysiologic Disorder: No - SURGICAL HISTORY Hx Surgeries: No - ANESTHESIA Hx Anesthesia Reactions: No Hx Malignant Hyperthermia: No Meds Allergies/Adverse Reactions: Allergies Allergy/AdvReac Type Severity Reaction Status Date / Time No Known Allergies Allergy Verified 06/07/18 20:48 - Medications Medications: Current Medications Famotidine (Pepcid) 20 mg IVP DAILY [facility] Morphine Sulfate (Morphine) 2 mg IVP Q4H PRN PRN Reason: Pain, severe (8-10) Last Admin: 07/13/18 02:00 Dose: 2 mg Valproate Sodium (Depakene Cap) 500 mg PO BID EL Physical Exam - Additional Findings Additional findings: Sustemic HEENT- wnl pt ewith hx of seizure disorder chest and lungs clear to A and P Cardiac exam SIS2 nsr o murmurs rubs thrills abdominal exam benign Musculosjeltasl deforimty L upper ext no neuro deficits Results - Vital Signs Recent Vital Signs: Last Vital Signs Temp 98.2 F 07/13/18 00:26 Pulse 69 07/13/18 00:26 Resp 18 07/13/18 01:10 BP 133/72 07/13/18 00:26 Pulse Ox 100 07/13/18 00:26 - Labs Result Diagrams: 07/13/18 05:25 07/13/18 05:25 Labs: Laboratory Results - last 24 hr 07/12/18 07/12/18 07/12/18 19:03 19:03 19:48 WBC 7.5 RBC 3.96 Hgb 13.1 L Hct 39.0 L MCV 98.5 MCH 33.1 MCHC 33.6 RDW 12.3 Plt Count 284 MPV 10.6 Gran % 69.3 H Lymph % (Auto) 20.5 L Fisher % (Auto) 9.2 H Eos % (Auto) 0.3 L Baso % (Auto) 0.7 Gran # 5.18 Lymph # (Auto) 1.5 Fisher # (Auto) 0.7 H Eos # (Auto) 0.0 Baso # (Auto) 0.05 PT INR APTT Sodium 140 Potassium 3.4 L Chloride 102 Carbon Dioxide 25 Anion Gap 16 BUN 9 Creatinine 0.7 L Est GFR ( Amer) > 60 Est GFR (Non-Af Amer) > 60 POC Glucose (mg/dL) Random Glucose 51 L Calcium 9.6 Total Bilirubin 0.4 AST 39 ALT 25 Alkaline Phosphatase 72 Total Protein 8.3 Albumin 4.6 Globulin 3.7 Albumin/Globulin Ratio 1.3 Urine Color Urine Appearance Urine pH Ur Specific Amorita Urine Protein Urine Glucose (UA) Urine Ketones Urine Blood Urine Nitrate Urine Bilirubin Urine Urobilinogen Ur Leukocyte Esterase Blood Type B POSITIVE Blood Type Confirm Antibody Screen Negative BBK History Checked No verified bt 07/12/18 07/12/18 07/13/18 20:00 21:03 00:53 WBC RBC Hgb Hct MCV MCH MCHC RDW Plt Count MPV Gran % Lymph % (Auto) Fisher % (Auto) Eos % (Auto) Baso % (Auto) Gran # Lymph # (Auto) Fisher # (Auto) Eos # (Auto) Baso # (Auto) PT INR APTT Sodium Potassium Chloride Carbon Dioxide Anion Gap BUN Creatinine Est GFR ( Amer) Est GFR (Non-Af Amer) POC Glucose (mg/dL) 72 Random Glucose Calcium Total Bilirubin AST ALT Alkaline Phosphatase Total Protein Albumin Globulin Albumin/Globulin Ratio Urine Color Yellow Urine Appearance Clear Urine pH 8.0 Ur Specific Amorita 1.015 Urine Protein Negative Urine Glucose (UA) Negative Urine Ketones Negative Urine Blood Negative Urine Nitrate Negative Urine Bilirubin Negative Urine Urobilinogen 0.2 Ur Leukocyte Esterase Negative Blood Type Blood Type Confirm B POSITIVE Antibody Screen BBK History Checked 07/13/18 07/13/18 07/13/18 05:25 05:25 05:25 WBC 8.9 RBC 4.06 Hgb 13.5 L Hct 39.4 L MCV 97.0 MCH 33.3 MCHC 34.3 RDW 12.1 Plt Count 280 MPV 9.5 Gran % 73.8 H Lymph % (Auto) 18.7 L Fisher % (Auto) 6.9 H Eos % (Auto) 0.3 L Baso % (Auto) 0.3 Gran # 6.53 H Lymph # (Auto) 1.7 Fisher # (Auto) 0.6 Eos # (Auto) 0.0 Baso # (Auto) 0.03 PT 12.2 INR 1.06 APTT 31.5 Sodium 139 Potassium 4.5 Chloride 106 Carbon Dioxide 25 Anion Gap 13 BUN 7 Creatinine 0.7 L Est GFR ( Amer) > 60 Est GFR (Non-Af Amer) > 60 POC Glucose (mg/dL) Random Glucose 90 Calcium 9.4 Total Bilirubin 0.6 AST 27 ALT 25 Alkaline Phosphatase 71 Total Protein 7.9 Albumin 4.5 Globulin 3.4 Albumin/Globulin Ratio 1.3 Urine Color Urine Appearance Urine pH Ur Specific Amorita Urine Protein Urine Glucose (UA) Urine Ketones Urine Blood Urine Nitrate Urine Bilirubin Urine Urobilinogen Ur Leukocyte Esterase Blood Type Blood Type Confirm Antibody Screen BBK History Checked - Impressions Impression: Xray- dislocated L shoulder with Hill Sachs deformity CT_ chronic changes of recurrent L shoulder doislocaytionb with L shouldr d islocation Assessment & Plan - Assessment and Plan (Free Text) Assessment: A- recurreent dislocation L shoulder P tpo OR for closedreducxtion as a direct and causal result ofg this injury pt will require l SHOULDER STABIULIZATION- WITH EITHER AN OPEN OR ARTHROSACOPIC PROCEDURE
[2018-07-13] MEDS ORDERED: HYDROmorphone 0.5 mg/0.5 ml ISec IVP PRN (07:22)
[2018-07-13 07:28] VITALS: TEMP 97.7
[2018-07-13] MEDS ORDERED: Lactated Ringer's 1,000 ML IV SCH (07:30)
[2018-07-13 07:42] VITALS: RESP 16; O2SAT 98
--- NOTE | 2018-07-13 08:14 | CT ---
Date of service: 07/12/2018 PROCEDURE: HISTORY: anterior shoulder dislocation COMPARISON: TECHNIQUE: FINDINGS: Anterior inferior dislocation of the humeral head with respect to the glenoid fossa with the humeral head prior chip on the anterior bony glenoid. No gross fracture. Large Hill-Sachs defect. Large glenohumeral joint effusion. IMPRESSION: As above.
[2018-07-13 08:16] VITALS: BP 121/78; PULSE 61
--- NOTE | 2018-07-13 09:06 | RAD ---
Date of service: 07/12/2018 HISTORY: preop COMPARISON: No prior. FINDINGS: LUNGS: No active pulmonary disease. PLEURA: No significant pleural effusion identified, no pneumothorax apparent. CARDIOVASCULAR: No aortic atherosclerotic calcification present. Normal cardiac size. No pulmonary vascular congestion. OSSEOUS STRUCTURES: No significant abnormalities. VISUALIZED UPPER ABDOMEN: Normal. OTHER FINDINGS: None. IMPRESSION: No active disease.
--- NOTE | 2018-07-13 09:25 | RAD ---
Date of service: 07/13/2018 PROCEDURE: Radiographs of the Left Shoulder HISTORY: pt in pacu s/p closed reduction shoulder COMPARISON: 07/12/2018 FINDINGS: BONES: Normal. No fracture. JOINTS: Normal. Glenohumeral and acromioclavicular joints preserved. No osteoarthritis. SOFT TISSUES: Normal. OTHER FINDINGS: None. IMPRESSION: Successful reduction
--- NOTE | 2018-07-13 09:35 | RAD ---
Date of service: 07/13/2018 PROCEDURE: Fluoroscopy up to 1 hr HISTORY: LT shoulder closed reduction COMPARISON: TECHNIQUE: 4.1 seconds fluoro time. Cumulative dose 0.32 mGy. Seven images submitted FINDINGS: The study shows reduction of a left shoulder dislocation IMPRESSION: As above
--- NOTE | 2018-07-13 13:47 | CP.PCM.DIS ---
<Kike Ponce - Last Filed: 07/13/18 13:50> Provider - Provider Date of Admission: 07/12/18 19:13 Attending physician: Sade Atkinson MD Primary care physician: Rachel Ellis MD Consults: 07/12/18 19:18 Physician Consult Stat Comment: Consulting Provider: Pedro Pablo Lobato III Consulting Physician: Pedro Pablo Lobato III Reason for Consult: anterior shoulder dislocation Time Spent in preparation of Discharge (in minutes): 30 Hospital Course - Lab Results Lab Results: Most Recent Lab Values WBC 8.9 10^3/uL (4.5-11.0) 07/13/18 05:25 RBC 4.06 10^6/uL (3.5-6.1) 07/13/18 05:25 Hgb 13.5 g/dL (14.0-18.0) L 07/13/18 05:25 Hct 39.4 % (42.0-52.0) L 07/13/18 05:25 MCV 97.0 fl (80.0-105.0) 07/13/18 05:25 MCH 33.3 pg (25.0-35.0) 07/13/18 05:25 MCHC 34.3 g/dl (31.0-37.0) 07/13/18 05:25 RDW 12.1 % (11.5-14.5) 07/13/18 05:25 Plt Count 280 10^3/uL (120.0-450.0) 07/13/18 05:25 MPV 9.5 fl (7.0-11.0) 07/13/18 05:25 Gran % 73.8 % (50.0-68.0) H 07/13/18 05:25 Lymph % (Auto) 18.7 % (22.0-35.0) L 07/13/18 05:25 Amador % (Auto) 6.9 % (1.0-6.0) H 07/13/18 05:25 Eos % (Auto) 0.3 % (1.5-5.0) L 07/13/18 05:25 Baso % (Auto) 0.3 % (0.0-3.0) 07/13/18 05:25 Gran # 6.53 (1.4-6.5) H 07/13/18 05:25 Lymph # (Auto) 1.7 (1.2-3.4) 07/13/18 05:25 Amador # (Auto) 0.6 (0.1-0.6) 07/13/18 05:25 Eos # (Auto) 0.0 (0.0-0.7) 07/13/18 05:25 Baso # (Auto) 0.03 K/mm3 (0.0-2.0) 07/13/18 05:25 PT 12.2 SECONDS (9.4-12.5) 07/13/18 05:25 INR 1.06 07/13/18 05:25 APTT 31.5 Seconds (25.1-36.5) 07/13/18 05:25 Sodium 139 mmol/L (132-148) 07/13/18 05:25 Potassium 4.5 mmol/L (3.6-5.0) 07/13/18 05:25 Chloride 106 mmol/L (98-107) 07/13/18 05:25 Carbon Dioxide 25 mmol/L (21-33) 07/13/18 05:25 Anion Gap 13 (10-20) 07/13/18 05:25 BUN 7 mg/dL (7-21) 07/13/18 05:25 Creatinine 0.7 mg/dl (0.8-1.5) L 07/13/18 05:25 Est GFR ( Amer) > 60 07/13/18 05:25 Est GFR (Non-Af Amer) > 60 07/13/18 05:25 POC Glucose (mg/dL) 64 mg/dL (65-110) L 07/13/18 11:03 Random Glucose 90 mg/dL (70-110) 07/13/18 05:25 Calcium 9.4 mg/dL (8.4-10.5) 07/13/18 05:25 Total Bilirubin 0.6 mg/dL (0.2-1.3) 07/13/18 05:25 AST 27 U/L (17-59) 07/13/18 05:25 ALT 25 U/L (7-56) 07/13/18 05:25 Alkaline Phosphatase 71 U/L (38-126) 12/07/18 05:25 Total Protein 7.9 g/dL (5.8-8.3) 07/13/18 05:25 Albumin 4.5 g/dL (3.0-4.8) 07/13/18 05:25 Globulin 3.4 gm/dL 07/13/18 05:25 Albumin/Globulin Ratio 1.3 (1.1-1.8) 07/13/18 05:25 Urine Color Yellow (YELLOW) 07/12/18 20:00 Urine Appearance Clear (CLEAR) 07/12/18 20:00 Urine pH 8.0 (4.7-8.0) 07/12/18 20:00 Ur Specific Justice 1.015 (1.005-1.035) 07/12/18 20:00 Urine Protein Negative mg/dL (<30 mg/dL) 07/12/18 20:00 Urine Glucose (UA) Negative mg/dL (NEGATIVE) 07/12/18 20:00 Urine Ketones Negative mg/dL (NEGATIVE) 07/12/18 20:00 Urine Blood Negative (NEGATIVE) 07/12/18 20:00 Urine Nitrate Negative (NEGATIVE) 07/12/18 20:00 Urine Bilirubin Negative (NEGATIVE) 07/12/18 20:00 Urine Urobilinogen 0.2 E.U./dL (<1 E.U./dL) 07/12/18 20:00 Ur Leukocyte Esterase Negative Jorge/uL (NEGATIVE) 07/12/18 20:00 Blood Type B POSITIVE 07/12/18 19:48 Blood Type Confirm B POSITIVE 07/12/18 21:03 Antibody Screen Negative 07/12/18 19:48 BBK History Checked No verified bt 07/12/18 19:48 - Hospital Course Hospital Course: Kike Ponce, PGY-1 Discharge Summary for Hospitalist Service 27 M with PMHx of seizures on Valproate admitted on 07/12/18 for recurrent anterior shoulder dislocation which occurred at work seen on x-ray of the left shoulder. In the ER, the dislocation was irreducible and a sling was placed. Patient was given morphine for pain control. CT w/o contrast of the left shoulder showed anterior dislocation of the left shoulder, small separate fragments along the medial aspect of the humeral head, and Hill Sachs deformity. Chest X-ray showed no active disease. Orthopedic surgery was consulted (Dr. Lobato), and the patient underwent a closed reduction of dislocated front shoulder under general anesthesia on 07/13/18 which he tolerated without complications. Shoulder x-ray at that time confirmed successful reduction. Patient was urged to follow up in his orthopedists's clinic on Monday for further evaluation. Patient to use Motrin as needed and to continue taking patient's Valproate Acid for seizure history. No Tramadol was given upon discharge as it lowers seizure threshold. Patient was provided work note that excused him from work until followup with orthopedist. Patient was not in pain and was AAOx3 in no acute distress and hemodynamically stable sitting up in bed comfortably. HR 61, BP 121/78, 98 % on room air. Patient understands importance to follow up with primary doctor as well as orthopedist this upcoming week. Patient's L arm is in a sling. Patient was prepared for discharge. Patient seen, case reviewed and plan approved by Dr. Atkinson. Kike Ponce, PGY-1 Discharge Exam - Additional Findings Additional findings: - Constitutional Appears: No Acute Distress - Head Exam Head Exam: ATRAUMATIC, NORMAL INSPECTION - Eye Exam Eye Exam: EOMI Pupil Exam: PERRL - ENT Exam ENT Exam: Mucous Membranes Moist - Neck Exam Neck exam: Positive for: Normal Inspection - Respiratory Exam Respiratory Exam: Clear to Auscultation Bilateral. absent: Accessory Muscle Use, Wheezes, Respiratory Distress - Cardiovascular Exam Cardiovascular Exam: REGULAR RHYTHM, +S1, +S2 - GI/Abdominal Exam GI & Abdominal Exam: Normal Bowel Sounds, Soft. absent: Firm, Guarding, Tenderness - Extremities Exam Extremities exam: Positive for: pedal pulses present Additional comments: Left shoulder is wrapped in sling s/p closed reduction - Back Exam Back exam: NORMAL INSPECTION - Neurological Exam Neurological exam: Alert, CN II-XII Intact, Oriented x3 - Skin Skin Exam: Normal Color, Warm Discharge Plan - Follow Up Plan Condition: IMPROVED Disposition: HOME/ ROUTINE Patient education suggested?: Yes Instructions: Shoulder Dislocation, Smoking: Not Just Harmful to Your Lungs and Heart, Dangers of Secondhand Smoke, Seizures, Adult (DC), Preventing Falls Additional Instructions: Please follow up with your primary care doctor within one week. Please take Motrin over the counter pain medication as needed every 6 hours. Please follow up with your orthopedist for your appointment on MondayJul 17. Patient is excused from work until then. Further recommendations per your orthopedist thereafter. Should symptoms worsen or reoccur, visit nearest emergency department. Referrals: Pedro Pablo Lobato III, MD [Medical Doctor] - Rachel Ellis MD [Primary Care Provider] - <Sade Atkinson - Last Filed: 07/13/18 15:06> Provider - Provider Date of Admission: 07/12/18 19:13 Attending physician: Sade Atkinson MD Primary care physician: Rachel Ellis MD Consults: 07/12/18 19:18 Physician Consult Stat Comment: Consulting Provider: Pedro Pablo Lobato III Consulting Physician: Pedro Pablo Lobato III Reason for Consult: anterior shoulder dislocation Time Spent in preparation of Discharge (in minutes): 35 Hospital Course - Lab Results Lab Results: Most Recent Lab Values WBC 8.9 10^3/uL (4.5-11.0) 07/13/18 05:25 RBC 4.06 10^6/uL (3.5-6.1) 07/13/18 05:25 Hgb 13.5 g/dL (14.0-18.0) L 07/13/18 05:25 Hct 39.4 % (42.0-52.0) L 07/13/18 05:25 MCV 97.0 fl (80.0-105.0) 07/13/18 05:25 MCH 33.3 pg (25.0-35.0) 07/13/18 05:25 MCHC 34.3 g/dl (31.0-37.0) 07/13/18 05:25 RDW 12.1 % (11.5-14.5) 07/13/18 05:25 Plt Count 280 10^3/uL (120.0-450.0) 07/13/18 05:25 MPV 9.5 fl (7.0-11.0) 07/13/18 05:25 Gran % 73.8 % (50.0-68.0) H 07/13/18 05:25 Lymph % (Auto) 18.7 % (22.0-35.0) L 07/13/18 05:25 Amador % (Auto) 6.9 % (1.0-6.0) H 07/13/18 05:25 Eos % (Auto) 0.3 % (1.5-5.0) L 07/13/18 05:25 Baso % (Auto) 0.3 % (0.0-3.0) 07/13/18 05:25 Gran # 6.53 (1.4-6.5) H 07/13/18 05:25 Lymph # (Auto) 1.7 (1.2-3.4) 07/13/18 05:25 Amador # (Auto) 0.6 (0.1-0.6) 07/13/18 05:25 Eos # (Auto) 0.0 (0.0-0.7) 07/13/18 05:25 Baso # (Auto) 0.03 K/mm3 (0.0-2.0) 07/13/18 05:25 PT 12.2 SECONDS (9.4-12.5) 07/13/18 05:25 INR 1.06 07/13/18 05:25 APTT 31.5 Seconds (25.1-36.5) 07/13/18 05:25 Sodium 139 mmol/L (132-148) 07/13/18 05:25 Potassium 4.5 mmol/L (3.6-5.0) 07/13/18 05:25 Chloride 106 mmol/L (98-107) 07/13/18 05:25 Carbon Dioxide 25 mmol/L (21-33) 07/13/18 05:25 Anion Gap 13 (10-20) 07/13/18 05:25 BUN 7 mg/dL (7-21) 07/13/18 05:25 Creatinine 0.7 mg/dl (0.8-1.5) L 07/13/18 05:25 Est GFR ( Amer) > 60 07/13/18 05:25 Est GFR (Non-Af Amer) > 60 07/13/18 05:25 POC Glucose (mg/dL) 64 mg/dL (65-110) L 07/13/18 11:03 Random Glucose 90 mg/dL (70-110) 07/13/18 05:25 Calcium 9.4 mg/dL (8.4-10.5) 07/13/18 05:25 Total Bilirubin 0.6 mg/dL (0.2-1.3) 07/13/18 05:25 AST 27 U/L (17-59) 07/13/18 05:25 ALT 25 U/L (7-56) 07/13/18 05:25 Alkaline Phosphatase 71 U/L (38-126) 07/13/18 05:25 Total Protein 7.9 g/dL (5.8-8.3) 07/13/18 05:25 Albumin 4.5 g/dL (3.0-4.8) 07/13/18 05:25 Globulin 3.4 gm/dL 07/13/18 05:25 Albumin/Globulin Ratio 1.3 (1.1-1.8) 07/13/18 05:25 Urine Color Yellow (YELLOW) 07/12/18 20:00 Urine Appearance Clear (CLEAR) 07/12/18 20:00 Urine pH 8.0 (4.7-8.0) 07/12/18 20:00 Ur Specific Justice 1.015 (1.005-1.035) 07/12/18 20:00 Urine Protein Negative mg/dL (<30 mg/dL) 07/12/18 20:00 Urine Glucose (UA) Negative mg/dL (NEGATIVE) 07/12/18 20:00 Urine Ketones Negative mg/dL (NEGATIVE) 07/12/18 20:00 Urine Blood Negative (NEGATIVE) 07/12/18 20:00 Urine Nitrate Negative (NEGATIVE) 07/12/18 20:00 Urine Bilirubin Negative (NEGATIVE) 07/12/18 20:00 Urine Urobilinogen 0.2 E.U./dL (<1 E.U./dL) 07/12/18 20:00 Ur Leukocyte Esterase Negative Jorge/uL (NEGATIVE) 07/12/18 20:00 Blood Type B POSITIVE 07/12/18 19:48 Blood Type Confirm B POSITIVE 07/12/18 21:03 Antibody Screen Negative 07/12/18 19:48 BBK History Checked No verified bt 07/12/18 19:48 Attending/Attestation - Attestation I have personally seen and examined this patient.: Yes I have fully participated in the care of the patient.: Yes I have reviewed all pertinent clinical information, including history, physical exam and plan: Yes Notes (Text): 07/13/18 15:03 27 year old male with past medical history of seizures and recurrent shoulder dislocation presented with shoulder dislocation while at work. Reduction was attempted in ED and he was placed on sling. He was seen by orthopedics and underwent closed reduction in OR today. He initially had hypoglycemia/hypokalemia which improved. Patient is discharged home to follow up with pmd. Follow up with neurologist. Follow up with orthopedics next week. Sade Atkinson MD Hospitalist.
--- NOTE | 2018-07-13 16:21 | CARD ---
APPROVED REPORT Date of service: 07/12/2018 EKG Measurement Heart [id number] <Conclusion> Normal sinus rhythm with sinus arrhythmia Normal ECG
--- NOTE | 2018-07-16 18:56 | OP ---
DATE OF SURGERY: 07/13/2018 PREOPERATIVE DIAGNOSIS: Recurrent left shoulder dislocation (the patient was admitted greater than 10 times over the course of his life). POSTOPERATIVE DIAGNOSIS: Recurrent left shoulder dislocation with recurrent left shoulder instability. PROCEDURES: 1. Closed reduction, recurrent left shoulder dislocation. 2. Positioning of fluoroscope, interpretation of video images. 3. Application of sling and swathe shoulder immobilizer. SURGEON: Pedro Pablo Lobato MD EXCELSIOR MACHINE FEEDER: None. TYPE OF ANESTHESIA: General endotracheal anesthesia. ANESTHESIA ADMINISTERED BY: Lalo Nur DO ESTIMATED BLOOD LOSS: Nil. BLOOD PRODUCTS: None. DRAINS: None. POSTOPERATIVE CONDITION: Stable. SPECIMEN: None. TIME OF SURGERY: 6:40 a.m. TIME IN THE ROOM 6:19 a.m. OPERATIVE INDICATIONS: The patient is a 27-year-old gentleman who presented to [facility] Emergency Room on 07/12/2018 after a work-related injury. The patient works at [employer] in [place] and sustained a traumatic injury to the shoulder and dislocated the left shoulder. The patient presented to [facility] Emergency Room, was treated by the emergency room physician, closed reduction was attempted x2 and failed. The patient was admitted and taken to surgery. A thorough discussion of the pros, cons, risks and benefits of the surgical approach, and closed reduction were discussed at length by Dena Esparza, our talent acquisition project manager at [place]. The concept that closed reduction would be attempted, the concept that because of the recurrent instability a stable shoulder may not be able to be obtained at this operative sitting, and the concept that this patient may unfortunately realize an open stabilization procedure were discussed. Since the patient has had greater than 8 to 10 times shoulder dislocation on the left with recurrent instability, the chance that an arthroscopic stabilization would be successful is slim. This was discussed briefly and will be discussed again when the patient is seen in followup. Pros, cons, risks and benefits of the closed reduction were discussed. The concept of recurrent instability was discussed. The patient is well aware of the fact that he has a recurrently unstable left shoulder and has had a previous opinion regarding stabilization. The possibility of mechanical failure, fracture, thromboembolic disease, nerve injury, recurrent instability was discussed. The patient can no longer stand the discomfort and wishes the surgery be accomplished. OPERATIVE PROCEDURE: After the satisfactory induction of general endotracheal anesthesia by Dr. Lalo Nur, after having identified the side, site, and procedure and a critical pause/time-out, after satisfactory induction of the anesthetic, the patient identified as Ochoa Marion. In the supine position, with all bony prominences well padded, the sheet is placed in the left axilla. This was placed around the patient's back. Under the surgeon's direction, the fluoroscope was positioned. Video images were generated and therapeutic decisions were made therefrom. The importance of complete relaxation was discussed with Dr. Nur. He was initially going to attempt sedation. Of course, having failed sedation twice in the emergency room, the patient does require intubation and complete muscle relaxation. After the satisfactory induction of general endotracheal anesthesia with complete muscle relaxation, under the surgeon's direction, the fluoroscope was positioned. Video images were generated and therapeutic decisions were made therefrom. There was found to be an enlarged Hill-Sachs deformity in the left proximal humerus and there was found to be an anteroinferior dislocation. With the circulating nurse exerting counter traction with the elbow flexed to avoid nerve injury, traction was applied and the shoulder was reduced. Verification of position was offered on AP and rotational views of the shoulder. There was again found to be eburnation of the anterior glenoid and inferior glenoid with no kosta fracture and there was evidence of an enlarged Hill-Sachs deformity. Compression dressing, sling and swathe shoulder immobilizer were applied. The patient was transferred from the operating room table to the stretcher having tolerated the procedure well. Pedro Pablo Lobato MD
== END 2018-07-13 14:27 | disposition home or self-care (01) | DRG 253 ==
LOC: ED 11:37 → ERH 19:13 → 5RSO 07-13 00:28
PROVIDERS: ADMIT Internal Medicine; ATTEND Internal Medicine
PROC: 0RSKXZZ Reposition Left Shoulder Joint, External Approach (ICD-10-PCS; principal; 2018-07-13 06:00)
DX: S43.015A Anterior dislocation of left humerus, initial encounter (principal); E87.6 Hypokalemia; M24.412 Recurrent dislocation, left shoulder; E16.2 Hypoglycemia, unspecified; G40.909 Epilepsy, unspecified, not intractable, without status epilepticus; Y99.0 Civilian activity done for income or pay; Y93.G1 Activity, food preparation and clean up; Y92.511 Restaurant or cafe as the place of occurrence of the external cause; Z86.11 Personal history of tuberculosis

== ENCOUNTER 2018-10-10 11:57 | Emergency (ER) | payer MEDICAID ==
[2018-10-10 11:57] VITALS: BMI 18.8
--- NOTE | 2018-10-10 13:29 | RAD ---
Date of service: 10/10/2018 PROCEDURE: Radiographs of the Left Shoulder HISTORY: shoulder dislocation - h/o hill-sachs on previous COMPARISON: 07/12/2018 FINDINGS: BONES: Normal. No fracture. JOINTS: Normal. Glenohumeral and acromioclavicular joints preserved. No osteoarthritis. SOFT TISSUES: Normal. OTHER FINDINGS: None. IMPRESSION: Normal radiographs of the left shoulder.
--- NOTE | 2018-10-10 14:54 | ED PDOC ---
Arrival/HPI - General Chief Complaint: Seizure Historian: Patient - History of Present Illness Narrative History of Present Illness (Text): 10/10/18 12:34 28 year old male with PMH of seizures on valpoic acid and history of left shoulder dislocations presenting to the ED for evaluation of left shoulder pain s/p witnessed seizure at work prior to arrival. Patient denies any head injury or loss of consciousness at the time. Patient denies any other associated somatic complaints. Patient denies any fevers, chills, headache, dizziness, chest pain, shortness of breath, dyspnea on exertion, cough, abdominal pain, nausea, vomiting, diarrhea, back pain, neck pain, or any other complaints. Time/Duration: Prior to Arrival Symptom Onset: Gradual Symptom Course: Unchanged Activities at Onset: Light Context: Work Past Medical History - Provider Review Nursing Documentation Reviewed: Yes - Infectious Disease Hx of Infectious Diseases: None - Tetanus Immunization Tetanus Immunization: Up to Date - Cardiac Hx Cardiac Disorders: No - Pulmonary Hx Respiratory Disorders: Yes Hx Tuberculosis: Yes (last year) - Neurological Hx Neurological Disorder: Yes Hx Seizures: Yes - HEENT Hx HEENT Disorder: No - Renal Hx Renal Disorder: No - Endocrine/Metabolic Hx Endocrine Disorders: No - Hematological/Oncological Hx Blood Disorders: No - Integumentary Hx Dermatological Disorder: No - Musculoskeletal/Rheumatological Hx Musculoskeletal Disorders: No - Gastrointestinal Hx Gastrointestinal Disorders: No - Genitourinary/Gynecological Hx Genitourinary Disorders: No - Psychiatric Hx Psychophysiologic Disorder: No Hx Substance Use: No - Anesthesia Hx Anesthesia: No Hx Anesthesia Reactions: No Hx Malignant Hyperthermia: No Family/Social History - Physician Review Nursing Documentation Reviewed: Yes Family/Social History: Unknown Family HX Smoking Status: Never Smoked Hx Alcohol Use: No Hx Substance Use: No Allergies/Home Meds Allergies/Adverse Reactions: Allergies No Known Allergies Allergy (Verified 06/07/18 20:48) Home Medications: Home Meds Medication Instructions Recorded Confirmed Valproic Acid Cap [Depakene Cap] 1,000 mg PO BID 08/09/16 10/10/18 Review of Systems - Physician Review All systems were reviewed & negative as marked: Yes - Review of Systems Constitutional: absent: Fevers Respiratory: absent: SOB, Cough Cardiovascular: absent: Chest Pain Gastrointestinal: absent: Abdominal Pain, Diarrhea, Nausea, Vomiting Genitourinary Male: absent: Dysuria, Urinary Output Changes Musculoskeletal: Other (Left shoulder pain ). absent: Back Pain, Neck Pain Skin: absent: Rash Neurological: Seizure. absent: Headache, Dizziness Psychiatric: absent: Anxiety Physical Exam Vital Signs Reviewed: Yes Vital Signs Temp Pulse Resp BP Pulse Ox 10/10/18 11:57 97.3 F L 86 18 130/80 97 Temperature: Afebrile Blood Pressure: Normal Pulse: Regular Respiratory Rate: Normal Appearance: Positive for: Well-Appearing, Non-Toxic, Comfortable Pain Distress: None Mental Status: Positive for: Alert and Oriented X 3 - Systems Exam Head: Present: Atraumatic, Normocephalic Pupils: Present: PERRL Extroacular Muscles: Present: EOMI Conjunctiva: Present: Normal Neck: Present: Normal Range of Motion Respiratory/Chest: Present: Clear to Auscultation, Good Air Exchange. No: Respiratory Distress, Accessory Muscle Use Cardiovascular: Present: Regular Rate and Rhythm, Normal S1, S2. No: Murmurs Abdomen: No: Tenderness, Distention, Peritoneal Signs Back: Present: Normal Inspection Upper Extremity: Present: NORMAL PULSES, Neurovascularly Intact, Other (Left shoulder squared off). No: Cyanosis, Edema Lower Extremity: Present: Normal Inspection. No: Edema Neurological: Present: GCS=15, CN II-XII Intact, Speech Normal Skin: Present: Warm, Dry, Normal Color. No: Rashes Psychiatric: Present: Alert, Oriented x 3, Normal Insight, Normal Concentration Medical Decision Making ED Course and Treatment: 10/10/18 12:30 Impression: 28 year old male presents to the ED for evaluation of left shoulder pain. Plan: -- CT of Upper Extremity -- X-ray of left shoulder -- Reassess and disposition Prior Visits: Notes and results from previous visits were reviewed. Progress Notes: 10/10/18 12:[address] patient in prone position to see gravity assist shoulder reduction, however patient is refusing. Patient is requesting sedation. 10/10/18 15:23 CT of left shoulder reviewed by radiologist, shows: FINDINGS: There is anterior dislocation of the humeral head. There is a large Hill-Sachs deformity in the posterior humeral head consistent with chronic recurrent dislocations. There is no evidence of acute fracture. IMPRESSION: There is anterior dislocation of the humeral head. There is a large Hill-Sachs deformity in the posterior humeral head consistent with chronic recurrent dislocations. There is no evidence of acute fracture. 10/10/18 15:58 PROCEDURE: PROCEDURAL SEDATION Performed by the emergency provider Start Time: 15:00 Consent: Informed consent, after discussion of the risks, benefits, and alternatives to the procedure, was obtained. Timeout: A timeout to verify the correct patient, procedure, and site was performed immediately prior to the procedure. Indication: Left Shoulder reduction No patient or family history of adverse reaction Patients H & P remains current: History and Physical and Current Medication list reviewed: Appropriate Candidate: Based on history and airway assessment, patient is an appropriate candidate for Moderate / Procedural Sedation: Preparation: Cardiac monitoring and continuous pulse oximetry. IV access obtained. Suction immediately available at bedside. Patient Position: Prone Anesthesia: Patient was given Versed with appropriate sedation. See MAR for details. Post-procedure: Patient tolerated the procedure well with no immediate complications. Patient recovered from sedation uneventfully and did not require airway intervention. Post anesthesia the patient's vital signs including respiratory function, cardiovascular function, and temperature were stable. The patient's pain post anesthesia was assessed as none. The patient was assessed for nausea post- sedation and the patient denies it. PROCEDURE: REDUCTION Performed by the emergency provider Time: 15:00 Consent: Informed consent, after discussion of the risks, benefits, and alternatives to the procedure, was obtained. Timeout: A timeout to verify the correct patient, procedure, and site was performed immediately prior to the procedure. Indication: Left shoulder dislocation Location: Left shoulder Sedation: Yes. See MAR for details. Pre-procedure neurovascular status: Distal neurovascular status intact. Technique: Scapular rotation. Initially reduced with spontaneous dislocation. Re-attempt was successful. Post-procedure neurovascular status: Distal neurovascular status remains intact. Confirmation: Post-reduction films confirm reduction. See post-procedure X-Ray interpretation. Post-procedure: Patient tolerated the procedure well with no immediate complications. - RAD Interpretation Radiology Orders: 10/10/18 12:34 SHOULDER LEFT [RAD] Stat 10/10/18 13:39 EXT UPPER W/O CONTRAST LEFT [CT] Stat Physical Therapist Clinic Director: Radiologist - Scribe Statement The provider has reviewed the documentation as recorded by the Scribe Brian Fletcher. All medical record entries made by the Scribe were at my direction and personally dictated by me. I have reviewed the chart and agree that the record accurately reflects my personal performance of the history, physical exam, medical decision making, and the department course for this patient. I have also personally directed, reviewed, and agree with the discharge instructions and disposition. Disposition/Present on Arrival - Present on Arrival Any Indicators Present on Arrival: No History of DVT/PE: No History of Uncontrolled Diabetes: No Urinary Catheter: No History of Decub. Ulcer: No History Surgical Site Infection Following: None - Disposition Have Diagnosis and Disposition been Completed?: Yes Diagnosis: Anterior shoulder dislocation, Seizure Disposition: HOME/ ROUTINE Disposition Time: 16:10 Patient Problems: Current Active Problems Problem Status Onset Anterior shoulder dislocation Acute Condition: IMPROVED Discharge Instructions (ExitCare): Shoulder Dislocation (DC), How to Use a Shoulder Sling Additional Instructions: JULIANA MIGUEL, thank you for letting us take care of you today. The emergency medical care you received today was directed at your acute symptoms. If you were prescribed any medication, please fill it and take as directed. It may take several days for your symptoms to resolve. Return to the Emergency Department if your symptoms worsen, do not improve, or if you have any other problems. Please contact your doctor or call one of the physicians/clinics you have been referred to that are listed on the Patient Visit Information form that is included in your discharge packet. Bring any paperwork you were given at discharge with you along with any medications you are taking to your follow up visit. Our treatment cannot replace ongoing medical care by a primary care provider outside of the emergency department. Thank you for allowing the [facility] team to be part of your care today. DO NOT TAKE THE SHOULDER SLING OFF UNTIL YOU SEE YOUR ORTHOPEDIC DOCTOR. Follow up with your orthopedic surgeon in 1-2 days for further evaluation and management. Forms: [employer] ([employer])
--- NOTE | 2018-10-10 15:01 | CT ---
Date of service: 10/10/2018 PROCEDURE: CT of the left shoulder HISTORY: left shoulder pain ? dislocation/fracture COMPARISON: Plain films TECHNIQUE: Radiation dose: Total exam DLP = 232 mGy-cm. This CT exam was performed using one or more of the following dose reduction techniques: Automated exposure control, adjustment of the mA and/or kV according to patient size, and/or use of iterative reconstruction technique. FINDINGS: There is anterior dislocation of the humeral head. There is a large Hill-Sachs deformity in the posterior humeral head consistent with chronic recurrent dislocations. There is no evidence of acute fracture. IMPRESSION: There is anterior dislocation of the humeral head. There is a large Hill-Sachs deformity in the posterior humeral head consistent with chronic recurrent dislocations. There is no evidence of acute fracture.
[2018-10-10] MEDS ORDERED: Midazolam 2 MG/2 ML VIAL IVP STA (15:02)
--- NOTE | 2018-10-10 16:16 | RAD ---
Date of service: 10/10/2018 PROCEDURE: Radiographs of the Left Shoulder HISTORY: post reduction COMPARISON: September 20, 2018 plain film radiographs left shoulder. September 20, 2018 CT scan left shoulder. FINDINGS: BONES: No visible fracture. There is deformity of the left humeral head likely Hill-Sachs deformity. JOINTS: Apparent reduction of previously identified anterior dislocation. The limitations of the current examination include portable technique. SOFT TISSUES: Normal. OTHER FINDINGS: None. IMPRESSION: Radiographic reduction of anterior dislocation compared to the prior examination performed earlier today at 13:06.
[2018-10-10 16:21] VITALS: TEMP 98
[2018-10-10 18:28] VITALS: RESP 16
[2018-10-10 23:06] VITALS: BP 121/85; PULSE 81; O2SAT 100
== END 2018-10-10 20:00 | disposition home or self-care (01) ==
LOC: ED 11:57
DX: S43.085A Other dislocation of left shoulder joint, initial encounter (principal); W18.30XA Fall on same level, unspecified, initial encounter; Y92.89 Other specified places as the place of occurrence of the external cause; Y99.0 Civilian activity done for income or pay; R56.9 Unspecified convulsions
CPT/HCPCS: 23655; 73020; 73030; 73200; 96374; 96375; 99285; J2250; J3010